=== PATIENT | female | born 1950 | race Asian ===

== ENCOUNTER → 2019-12-13 12:43 | Outpatient (CLI) | payer OTHER, MEDICARE, SELFPAY ==
--- NOTE | 2019-12-13 | DI.MRI.S_ITS ---
PROCEDURE: MR KNEE LT WO CON INDICATIONS: left knee pain TECHNIQUE: Noncontrast sagittal PD fast spin echo and T2 fast spin echo with fat saturation, sagittal 3-D FLASH with fat saturation; coronal T1 spin echo and PD fast spin echo with fat saturation, and axial PD fast spin echo with fat saturation through the knee. COMPARISON: None. FINDINGS: Image quality: Excellent. Menisci: The medial and lateral menisci demonstrate normal morphology and internal signal. The meniscal root ligaments appear intact. Cruciate ligaments: The anterior and posterior cruciate ligaments appear intact. Medial structures: The medial collateral ligament appears intact. The semimembranosus tendon insertions and meniscocapsular junction appear intact. Visualized portions of the pes anserinus tendons appear normal. No abnormal bursal fluid. Lateral structures: The lateral collateral ligament, long and short heads of the biceps femoris tendon appear intact. The popliteus tendon appears normal. Iliotibial band appears normal. Anterior structures: The quadriceps and patellar tendons appear intact. Patellar alignment is normal. No femoral trochlear dysplasia or ventral trochlear prominence. No edema in the infrapatellar fat pad. Bones and cartilage: No bone marrow contusions or fractures. There is mild cartilage fibrillation in the medial and lateral femorotibial compartment. Cartilage thickness is preserved. Joint space: There is small knee joint effusion. Tiny Duong's cyst. Normal appearing synovial plicae are incidentally noted. IMPRESSION: 1. Mild cartilage fibrillation in the medial femoral tibial compartment. 2. Small knee joint effusion is present. Dictated by: Gloria See M.D. on 12/15/2019 at 9:39 Approved by: Gloria See M.D. on 12/15/2019 at 11:40
== END ==
PROVIDERS: Family Provider Family Medicine; PCP Family Medicine; Referring Provider Family Medicine; Visit Provider Family Medicine
DX: M25.562 Pain in left knee (principal); M25.462 Effusion, left knee
CPT/HCPCS: 73721

== ENCOUNTER → 2020-08-18 13:40 | Outpatient (CLI) | payer OTHER, MEDICARE, SELFPAY ==
[2020-08-18] MEDS: COVID-19 VACC #1, MRNA(MOD) 100 MCG/0.5 ML VIAL IM (13:50)
== END ==
PROVIDERS: Family Provider Family Medicine; PCP Family Medicine; Visit Provider Internal Medicine
DX: Z23 Encounter for immunization (principal)
CPT/HCPCS: 0011A; 91301

== ENCOUNTER → 2020-09-15 13:53 | Outpatient (CLI) | payer OTHER, MEDICARE, SELFPAY ==
[2020-09-15] MEDS: COVID-19 VACC #2, MRNA(MOD) 100 MCG/0.5 ML VIAL IM (14:03)
== END ==
PROVIDERS: Family Provider Family Medicine; PCP Family Medicine; Visit Provider Internal Medicine
DX: Z23 Encounter for immunization (principal)
CPT/HCPCS: 0012A; 91301

== ENCOUNTER 2022-10-21 15:56 | Emergency (ER) | payer OTHER, MEDICARE, SELFPAY ==
[2022-10-21] VITALS (15 sets, daily range): BP systolic 160–209; BP diastolic 70–96; PULSE 63–81; RESP 15–21; TEMP 36.1; O2SAT 97–100; BMI 26.2
--- NOTE | 2022-10-21 16:18 | ED_ITS ---
HPI - Abdominal Pain General Chief Complaint: Abdominal Pain Stated Complaint: Having trouble walking/standing, abd pain Time Seen by Provider: 10/21/22 16:10 History of Present Illness HPI narrative: 72-year-old female nonsmoker with history hyperlipidemia and recent course of diarrhea treated with Flagyl presents with a chief complaint of right flank and right-sided abdominal pain since last night. She states that it seems to go into her groin and maybe her lateral thigh. She states the pain is worse when she moves and improves with rest. She denies fever but has had some chills. She states that it feels ?funny when she urinates. She denies any vaginal bleeding or discharge. She denies constipation or diarrhea. Related Data Home Medications Medication Instructions Recorded Confirmed albuterol sulfate 90 mcg/actuation 2 puff INH ##0 05/27/17 aerosol inhaler (Ventolin HFA) atorvastatin 40 mg tablet (Lipitor) 40 mg PO QDAY ##0 05/27/17 benzonatate 100 mg capsule 100 mg PO TIDP PRN ##0 05/27/17 loratadine 10 mg capsule (Claritin 10 mg PO QDAY ##0 05/27/17 Liqui-Gel) Previous Rx's Medication Instructions Recorded amoxicillin 875 mg-potassium 875 mg PO BID 14 days #0 tabs 05/27/17 clavulanate 125 mg tablet (Augmentin) hydrocodone 5 mg-acetaminophen 325 0 tab PO Q6HP PRN #15 tabs 05/27/17 mg tablet ondansetron 4 mg disintegrating 4 mg sublingual Q6HP PRN ##20 05/27/17 tablet (Zofran ODT) gabapentin 300 mg capsule 300 mg PO BEDTIME #14 caps 10/21/22 hydrocodone 5 mg-acetaminophen 325 1 tab PO Q4-6H PRN pain #10 tabs 10/21/22 mg tablet ketorolac 10 mg tablet 10 mg PO Q6H PRN pain #14 tabs 10/21/22 methylprednisolone 4 mg tablets in See Rx Instructions PO .COMPLEX 10/21/22 a dose pack (Medrol (Abhijit)) #21 ea ondansetron 4 mg disintegrating 4 mg PO TID-QID PRN nausea and 10/21/22 tablet vomiting #10 tabs Allergies Allergy/AdvReac Type Severity Reaction Status Date / Time aspirin [ASPIRIN] Allergy Unknown Unverified 08/22/17 13:03 Review of Systems Review of Systems Narrative: GENERAL: Denies chills, fatigue, malaise, fever, sweats. HEENT: Denies sinus pain, ear pain, sore throat, difficulty swallowing, dizziness. RESPIRATORY: Denies dyspnea, cough, wheezing, hemoptysis, sputum. CARDIOVASCULAR: Denies chest pain, palpitations, orthopnea, edema, GASTROINTESTINAL: See HPI : See HPI MUSCULOSKELETAL: denies weakness, joint pain, or bony pain SKIN: Denies rash, skin lesions, or other NEUROLOGIC: Denies weakness, headache, numbness, change in speech, confusion, seizures, incoordination. PSYCHIATRIC: No concerning psychosocial issues. 12 point review of systems is negative except for those stated above Exam Narrative Exam Narrative: GENERAL: [72] year old patient appears stated age. Well-developed patient, in mild distress. HEAD: Atraumatic. Normocephalic. EYES: Pupils equal round and reactive. Extraocular motions intact. No scleral icterus. No injection or drainage. ENT: Nose without bleeding, purulent drainage. Throat without erythema, tonsillar hypertrophy or exudate. Airway patent. NECK: Trachea midline. Non tender CARDIOVASCULAR: Regular rate and rhythm without murmurs, gallops, or rubs. RESPIRATORY: Clear to auscultation. Breath sounds equal bilaterally. No wheezes, rales, or rhonchi. GASTROINTESTINAL: Abdomen soft, right side abdominal pain, normal bowel sounds, no rebound or guarding, nondistended. EXTREMITIES: No edema or joint tenderness. BACK: conditioner tender but free of any obvious external abnormalities. Patient exam notes decreased range of motion and muscle spasm, but no CVA tenderness, or vertebral point tenderness. There are no symptoms of cauda equina such as saddle anesthesia, and decreased reflexes, decreased sensation or strength. NEURO: AOx3. SKIN: No rash or erythema of visible areas Initial Vital Signs Initial Vital Signs: Vital Signs Temperature 96.9 F L 10/21/22 15:58 Pulse Rate 78 10/21/22 15:58 Respiratory Rate 16 10/21/22 15:58 Blood Pressure 186/85 H 10/21/22 15:58 Pulse Oximetry 99 10/21/22 15:58 Oxygen Delivery Method Room Air 10/21/22 15:58 Course Orders Ordered: Discontinued Medications Hydrocodone Bitart/Acetaminophen (Hydrocodone/Acet 5/325 Prepack) 1 bottle MISC SEEINSTR ONE Stop: 10/21/22 18:46 Last Admin: 10/21/22 18:59 Dose: 1 bottle Documented By: HIMA Ondansetron HCl (Ondansetron 4 Mg/2 Ml Inj) 4 mg IV NOW PRN PRN Reason: Nausea And Vomiting Ondansetron HCl (Ondansetron 4 Mg Odt Prepack) 1 bottle MISC SEEINSTR ONE Stop: 10/21/22 18:46 Last Admin: 10/21/22 18:59 Dose: 1 bottle Documented By: HIMA Vital Signs Vital signs: Vital Signs - 8 hr 10/21/22 18:30 10/21/22 18:30 Pulse Rate 66 Respiratory Rate 18 Blood Pressure 169/72 H Pulse Oximetry 99 MDM - Abdominal Pain Lab Data 10/21/22 16:25 10/21/22 16:25 Labs: Lab Results 10/21/22 10/21/22 10/21/22 Range/Units 16:14 16:25 16:25 WBC 8.4 (4.5-11.0) X10^3/uL RBC 4.94 (4.0-5.2) X10^6/uL Hgb 14.3 (12.0-16.0) g/dL Hct 42.5 (36-46) % MCV 85.9 (80-100) fL MCH 29.0 (26-34) PG MCHC 33.7 (30-36) % RDW 13.4 (11.6-14.8) % Plt Count 167 (150-400) X10^3/uL Neut % (Auto) 63.8 (50-75) % Lymph % (Auto) 24.3 L (25-40) % [place] % (Auto) 10.0 (3-14) % Eos % (Auto) 1.1 L (2-4) % Baso % (Auto) 0.8 (0-2) % Neut # (Auto) 5400 (7825-1637) /uL Lymph # (Auto) 2100 (8948-3054) /uL [place] # (Auto) 800 (0-900) /uL Eos # (Auto) 100 (0-450) /uL Baso # (Auto) 100 (0-100) /uL PT 11.5 (10.1-12.7) SECONDS INR 1.0 (0.9-1.3) Sodium (137-145) mmol/L Potassium (3.4-5.1) mmol/L Chloride (98-107) mmol/L Carbon Dioxide (22-32) mmol/L BUN (7-17) mg/dL Creatinine (0.52-1.04) mg/dL Estimated GFR (>60) mL/min BUN/Creatinine Ratio (6-22) Glucose (80-110) mg/dL Calcium (8.4-10.2) mg/dL Total Bilirubin (0.2-1.3) mg/dL AST (14-36) IU/L ALT (<35) IU/L Alkaline Phosphatase (38-126) U/L Total Protein (6.3-8.2) g/dL Albumin (3.5-5.0) g/dL Globulin (1.7-4.1) g/dL Albumin/Globulin Ratio (1.0-2.8) Lipase (23-300) U/L Urine RBC 5-10/hpf H (0-5/HPF) Urine WBC 1-5/hpf (0-5/HPF) Ur Squamous Epith Cells 1-5 /hpf (0-5/HPF) Urine Bacteria Occasional (0-1) (None) Ur Culture Indicated? Cult not indicated 10/21/22 Range/Units 16:25 WBC (4.5-11.0) X10^3/uL RBC (4.0-5.2) X10^6/uL Hgb (12.0-16.0) g/dL Hct (36-46) % MCV (80-100) fL MCH (26-34) PG MCHC (30-36) % RDW (11.6-14.8) % Plt Count (150-400) X10^3/uL Neut % (Auto) (50-75) % Lymph % (Auto) (25-40) % [place] % (Auto) (3-14) % Eos % (Auto) (2-4) % Baso % (Auto) (0-2) % Neut # (Auto) (4152-8013) /uL Lymph # (Auto) (4057-2305) /uL [place] # (Auto) (0-900) /uL Eos # (Auto) (0-450) /uL Baso # (Auto) (0-100) /uL PT (10.1-12.7) SECONDS INR (0.9-1.3) Sodium 140 (137-145) mmol/L Potassium 3.4 (3.4-5.1) mmol/L Chloride 104 (98-107) mmol/L Carbon Dioxide 28 (22-32) mmol/L BUN 15 (7-17) mg/dL Creatinine 0.56 (0.52-1.04) mg/dL Estimated GFR > 60 (>60) mL/min BUN/Creatinine Ratio 26.8 H (6-22) Glucose 97 (80-110) mg/dL Calcium 9.3 (8.4-10.2) mg/dL Total Bilirubin 0.7 (0.2-1.3) mg/dL AST 28 (14-36) IU/L ALT 36 H (<35) IU/L Alkaline Phosphatase 81 (38-126) U/L Total Protein 8.5 H (6.3-8.2) g/dL Albumin 4.6 (3.5-5.0) g/dL Globulin 3.9 (1.7-4.1) g/dL Albumin/Globulin Ratio 1.2 (1.0-2.8) Lipase 261 (23-300) U/L Urine RBC (0-5/HPF) Urine WBC (0-5/HPF) Ur Squamous Epith Cells (0-5/HPF) Urine Bacteria (None) Ur Culture Indicated? Point of care testing: Urine Dip Bedside Urine Glucose Negative Bedside Urine Bilirubin - Negative Bedside Urine Ketone - Negative Urine Specific [place] 1.010 Bedside Urine Occult Blood + Bedside Urine pH 6.0 Bedside Urine Protein - Negative Bedside Urine Urobilinogen - Negative Bedside Urine Nitrite - Negative Bedside Urine Leukocytes - Negative Esterase MDM Narrative Medical decision making narrative: CC: 72-year-old female with right-sided flank pain and some right lateral leg pain Complicating co-morbidities: age Data collected from: Patient Medical records reviewed: Prior notes reviewed in our EMR Differential considered, but not limited to: kidney stone versus bowel infection versus bowel obstruction versus pyelonephritis versus lumbar radiculo kasia Exam documented above, pertinent findings include: no saddle anesthesia, no lower extremity weakness, bilateral patellar reflexes intact, abdomen is soft but tender Lab Test results independently reviewed as above. Pertinent findings: Independently reviewed EKG as above Imaging studies independently reviewed: CT abdomen and pelvis, no acute findings Re-evaluations: patient's pain is well controlled, she is tolerating ambulation and orals Discussion: 72-year-old female with flank pain and lateral leg pain has reassuring history and physical exam. Multiple diagnoses considered as noted above, no evidence of a urinary tract infection, kidney stone or bowel obstruction, labs and imaging are reassuring. Patient does have some mild radicular symptoms but no red flag findings suggestive of a neurosurgical emergency such as cauda equina, subdural hematoma or epidural abscess. Patient given return precautions and questions answered to her apparent satisfaction Disposition: see below, along with detailed discharge instructions that have been reviewed with patient as well as indications for ED re-evaluation and additional outpatient follow up Discharge Plan Departure Patient Disposition: Home Clinical Impression: Acute right flank pain Instructions: DI for Flank Pain Activity Restrictions/Additional Instructions: *You have been diagnosed with [abdominal pain] * As we discussed your history and physical exam as well as labs and imaging are very reassuring. There is no evidence of any severe diagnoses that would require a specific or immediate intervention. *What to do: *Please continue to take your regular medications as directed. [x ] New medication prescriptions sent to your pharmacy: [[facility] ] *Please follow up with your primary care provider in 2-3 days, call for an appointment. Let them know you were seen in the Emergency Department and that we ask that you be seen in follow up. We will electronically transmit a record of today's note if your PCP is in our system *Please consider a clear liquid diet for the next 24-48 hours and then slowly advance to regular as tolerated. Also, try to avoid alcohol, nicotine, caffeine, spicy, acidic or fatty foods as this may worsen your symptoms *If you do not have a primary care provider please contact the [facility] Resource line at [phone]. They will ask some questions about your medical history and help get you set up with a doctor in the community. *Return to Emergency Department if you should have any new, worsening or concerning symptoms, such as [fever greater than 101 F, shaking chills, worsening pain, persistent vomiting or other bothersome symptoms] Prescriptions: New hydrocodone-acetaminophen 5-325 mg tablet 1 tab PO Q4-6H PRN (Reason: pain) Qty: 10 0RF ketorolac 10 mg tablet 10 mg PO Q6H PRN (Reason: pain) Qty: 14 0RF gabapentin 300 mg capsule 300 mg PO BEDTIME Qty: 14 0RF methylprednisolone [Medrol (Abhijit)] 4 mg tablets,dose pack See Rx Instructions .ROUTE .COMPLEX Qty: 21 0RF Rx Instructions: orally per package directions ondansetron 4 mg tablet,disintegrating 4 mg PO TID-QID PRN (Reason: nausea and vomiting) Qty: 10 0RF No Action benzonatate 100 MG capsule 100 mg PO TIDP PRNQty: 0 albuterol sulfate [Ventolin HFA] 90 MCG/PUFF HFA aerosol inhaler 2 puff INH Qty: 0 atorvastatin [Lipitor] 40 MG tablet 40 mg PO QDAY Qty: 0 loratadine [Claritin Liqui-Gel] 10 MG capsule 10 mg PO QDAY Qty: 0 hydrocodone-acetaminophen 5 MG/325 MG tablet 0 tab PO Q6HP PRNQty: 15 0RF ondansetron [Zofran ODT] 4 MG tablet,disintegrating 4 mg Sublingual Q6HP PRNQty: 20 0RF amoxicillin-pot clavulanate [Augmentin] 875 MG/125 MG tablet 875 mg PO BID 14 Days Qty: 0 0RF Referrals: Aishwarya Shepherd PA-C [Primary Care Provider] - Stand Alone Forms: Patient Portal/API, Work Release Note
[2022-10-21 16:33] LABS: Add Manual Diff / Slide Review NO; Basophils Absolute Auto 100 /uL (0-100); Basophils Percent Auto 0.8 % (0-2); Eosinophils Absolute Auto 100 /uL (0-450); Eosinophils Percent Auto 1.1 % (2-4); Hematocrit 42.5 % (36-46); Hemoglobin 14.3 g/dL (12.0-16.0); Lymphocytes Absolute Auto 2100 /uL (1100-4500); Lymphocytes Percent Auto 24.3 % (25-40); Mean Corpuscular HGB Conc 33.7 % (30-36); Mean Corpuscular Volume 85.9 fL (80-100); Monocytes Absolute Auto 800 /uL (0-900); Neutrophils Absolute Auto 5400 /uL (1500-7000); Neutrophils Percent Auto 63.8 % (50-75); Platelet Count 167 X10^3/uL (150-400); Red Blood Cell Count 4.94 X10^6/uL (4.0-5.2); Red Cell Distribution Width 13.4 % (11.6-14.8); White Blood Cell Count 8.4 X10^3/uL (4.5-11.0)
[2022-10-21 16:40] LABS: Prothrombin Time 11.5 SECONDS (10.1-12.7)
[2022-10-21 16:44] LABS: Alanine Aminotransferase 36 IU/L (<35); Albumin 4.6 g/dL (3.5-5.0); Albumin Globulin Ratio 1.2 (1.0-2.8); Alkaline Phosphatase 81 U/L (38-126); Aspartate Aminotransferase 28 IU/L (14-36); BUN Creatinine Ratio 26.8 (6-22); Bilirubin Total 0.7 mg/dL (0.2-1.3); Blood Urea Nitrogen 15 mg/dL (7-17); Calcium 9.3 mg/dL (8.4-10.2); Carbon Dioxide 28 mmol/L (22-32); Chloride 104 mmol/L (98-107); Estimated Glomerular Filt Rate > 60 mL/min (>60); Globulin 3.9 g/dL (1.7-4.1); Glucose 97 mg/dL (80-110); HEMOLYSIS < 15 (0-50); Lipase 261 U/L (23-300); Potassium 3.4 mmol/L (3.4-5.1); Sodium 140 mmol/L (137-145); Total Protein 8.5 g/dL (6.3-8.2)
[2022-10-21 16:50] LABS: Bacteria Urine Occasional (0-1); RBC Urine 5-10/HPF (0-5/HPF); Squamous Epithelial Cell Urine 1-5 /HPF (0-5/HPF); WBC Urine 1-5/HPF (0-5/HPF)
[2022-10-21 16:51] LABS: Culture Indicated Urine Cult Not Indicated
--- NOTE | 2022-10-21 16:52 | DI.CT.S_ITS ---
PROCEDURE: CT ABDOMEN PELVIS W CON INDICATIONS: Right flank pain x 3 days TECHNIQUE: After the administration of intravenous contrast, axial sections acquired from the lung bases to the pubic symphysis. Coronal and sagittal reformats were performed. For radiation dose reduction, the following was used: automated exposure control, adjustment of mA and/or kV according to patient size. COMPARISON: None. FINDINGS: Lower thorax: The lung bases are clear. Heart size normal. No hiatal hernia. Liver: Normal in size and attenuation. No contour deformity present. Biliary system: Cholecystectomy. No intra or extrahepatic bile duct dilation. Pancreas: Unremarkable without mass or inflammation evident. Spleen: Normal in size and density. Adrenals: Normal morphology and density. Reproductive system: Unremarkable as visualized. Urinary system: Normal renal size and attenuation. No renal calculi, hydronephrosis, or solid mass present. Urinary bladder unremarkable. Gastrointestinal system: The bowel is unremarkable without evidence of bowel obstruction or inflammation. The stomach appears unremarkable. Appendix: No findings to suggest acute appendicitis. Peritoneal spaces: No mesenteric or retroperitoneal adenopathy. No free air. No free fluid. Vasculature: The IVC, aorta and iliac vasculature are unremarkable. Abdominal wall: Abdominal wall intact without evidence of ventral or inguinal hernias. Musculoskeletal: Normal bone mineralization. Degenerative disc disease and arthropathy noted in lower lumbar spine. No acute fractures. IMPRESSION: 1. No acute CT findings in the abdomen and pelvis. Approved by: Aidan Chavez M.D. on 10/21/2022 at 17:20
[2022-10-21] MEDS: ONDANSETRON 4 MG ODT PREPACK 1 BOTTLE MISC (18:59)
[2022-10-21] MEDS: HYDROCODONE/ACET 5/325 PREPACK 1 BOTTLE MISC (18:59)
== END 2022-10-21 19:15 | disposition home or self-care (01) ==
PROVIDERS: Emergency Provider Emergency Medicine; Family Provider Family Medicine; PCP Physician Assistant Medical
DX: R10.9 Unspecified abdominal pain (principal); M79.604 Pain in right leg
CPT/HCPCS: 36415; 74177; 80053; 81003; 81015; 83690; 85025; 85610; 93005; 93010; 99284; Q9967

== ENCOUNTER 2023-12-03 03:53 | Emergency (ER) | payer MEDICARE, OTHER, SELFPAY ==
[2023-12-03] VITALS (20 sets, daily range): BP systolic 99–188; BP diastolic 49–84; PULSE 58–92; RESP 15–30; TEMP 36.9; O2SAT 93–99; BMI 27.2
--- NOTE | 2023-12-03 04:04 | ED.GENADULT ---
HPI - General Adult <Jona Lyons MD - Last Filed: 12/03/23 16:29> General Chief complaint: Headache Stated complaint: vomiting, headache, chest pain, 180/90 bp Time Seen by Provider: 12/03/23 03:59 History of Present Illness HPI narrative: 73-year-old female recently seen outside facility 11/28/23 ED [facility] complains for elevated blood pressure, no imaging recalled per patient/daughter, discharged home without specific treatment, and to follow up with PCP for blood pressure issues, now having posterior headache since yesterday, after spending 8 hours at local [employer] through the day yesterday, no fall or injury. No visual complaints. She has no focal weakness or numbness to face arm or leg. She denies use of blood thinners. Recent evaluation alternate facility noted. She has had some resolved chest discomfort, recent mild dry cough. Denies shortness of breath. Related Data Home Medications Medication Instructions Recorded Confirmed albuterol sulfate 90 mcg/actuation 2 puff INH ##0 05/27/17 aerosol inhaler (Ventolin HFA) atorvastatin 40 mg tablet (Lipitor) 40 mg PO QDAY ##0 05/27/17 benzonatate 100 mg capsule 100 mg PO TIDP PRN ##0 05/27/17 loratadine 10 mg capsule (Claritin 10 mg PO QDAY ##0 05/27/17 Liqui-Gel) Previous Rx's Medication Instructions Recorded amoxicillin 875 mg-potassium 875 mg PO BID 14 days #0 tabs 05/27/17 clavulanate 125 mg tablet (Augmentin) hydrocodone 5 mg-acetaminophen 325 0 tab PO Q6HP PRN #15 tabs 05/27/17 mg tablet ondansetron 4 mg disintegrating 4 mg sublingual Q6HP PRN ##20 05/27/17 tablet (Zofran ODT) gabapentin 300 mg capsule 300 mg PO BEDTIME #14 caps 10/21/22 hydrocodone 5 mg-acetaminophen 325 1 tab PO Q4-6H PRN pain #10 tabs 10/21/22 mg tablet ketorolac 10 mg tablet 10 mg PO Q6H PRN pain #14 tabs 10/21/22 methylprednisolone 4 mg tablets in See Rx Instructions PO .COMPLEX 10/21/22 a dose pack (Medrol (Abhijit)) #21 ea ondansetron 4 mg disintegrating 4 mg PO TID-QID PRN nausea and 10/21/22 tablet vomiting #10 tabs ketorolac 10 mg tablet 10 mg PO Q6H PRN pain #14 tabs 10/22/22 methylprednisolone 4 mg tablets in See Rx Instructions PO .COMPLEX 10/22/22 a dose pack (Medrol (Abhijit)) #21 ea ondansetron 4 mg disintegrating 4 mg PO TID-QID PRN nausea and 10/22/22 tablet vomiting #10 tabs Allergies Allergy/AdvReac Type Severity Reaction Status Date / Time aspirin [ASPIRIN] Allergy Intermediate Verified 12/03/23 05:26 Review of Systems <Jona Lyons MD - Last Filed: 12/03/23 16:29> Review of Systems Narrative: see HPI Exam <Jona Lyons MD - Last Filed: 12/03/23 16:29> Narrative Exam Narrative: GENERAL: Well-developed patient, in mild distress. HEAD: Atraumatic. Normocephalic. EYES: Pupils equal round and reactive. Extraocular motions intact. No scleral icterus. No injection or drainage. ENT: Nose without bleeding, purulent drainage. Throat without erythema, tonsillar hypertrophy or exudate. Airway patent. NECK: Trachea midline. Non tender CARDIOVASCULAR: Regular rate and rhythm without murmurs, gallops, or rubs. RESPIRATORY: Clear to auscultation. Breath sounds equal bilaterally. No wheezes, rales, or rhonchi. GASTROINTESTINAL: Abdomen soft, non-tender, nondistended. EXTREMITIES: No edema or joint tenderness. BACK: Nontender without deformity or crepitance. No flank tenderness. NEURO: AOx3. Grossly nonfocal neuro exam SKIN: No rash or erythema of visible areas Initial Vital Signs Initial Vital Signs: Vital Signs Pulse Rate 80 12/03/23 04:06 Respiratory Rate 22 12/03/23 04:06 Blood Pressure 188/84 H 12/03/23 04:06 Pulse Oximetry 97 12/03/23 04:06 <Khalida Ridley DO - Last Filed: 12/03/23 18:46> Initial Vital Signs Initial Vital Signs: Vital Signs Pulse Rate 80 12/03/23 04:06 Respiratory Rate 22 12/03/23 04:06 Blood Pressure 188/84 H 12/03/23 04:06 Pulse Oximetry 97 12/03/23 04:06 Course <Jona Lyons MD - Last Filed: 12/03/23 16:29> Orders Ordered: Discontinued Medications Diphenhydramine HCl (Diphenhydramine 50 Mg/Ml Vial) 50 mg IV NOW ONE Stop: 12/03/23 04:09 Last Admin: 12/03/23 04:27 Dose: 50 mg Documented By: AB Sodium Chloride (Normal Saline 0.9%) 1,000 mls @ 150 mls/hr IV CONT DORI Last Infusion: 12/03/23 05:50 Dose: Infused Documented By: Infusion: 12/03/23 05:50 Dose: 0 mls/hr Documented By: Admin: 12/03/23 04:28 Dose: 150 mls/hr Documented By: AB Nicardipine HCl 25 mg/ Sodium (Chloride) 250 mls @ 50 mls/hr IV TITRATE DORI; Protocol Last Titration: 12/03/23 06:44 Dose: 0 mg/hr, 0 mls/hr Documented By: Admin: 12/03/23 05:40 Dose: 5 mg/hr, 50 mls/hr Documented By: AB Prochlorperazine (Prochlorperazine 10 Mg/2 Ml Vial) 5 mg IV NOW ONE Stop: 12/03/23 04:08 Last Admin: 12/03/23 04:27 Dose: 5 mg Documented By: AB Vital Signs Vital signs: Vital Signs - 8 hr 12/03/23 08:33 12/03/23 08:33 12/03/23 09:00 Pulse Rate 72 Respiratory Rate 16 Blood Pressure 155/67 H 121/57 L Pulse Oximetry 97 12/03/23 09:00 12/03/23 09:30 12/03/23 09:30 Pulse Rate 59 L 59 L Respiratory Rate 15 16 Blood Pressure 121/59 L Pulse Oximetry 97 96 12/03/23 09:34 12/03/23 09:34 12/03/23 10:00 Pulse Rate 67 58 L Respiratory Rate 16 16 Blood Pressure 128/59 L Pulse Oximetry 97 98 12/03/23 10:00 12/03/23 10:30 12/03/23 10:30 Pulse Rate 63 Respiratory Rate 20 Blood Pressure 112/57 L 118/58 L Pulse Oximetry 97 <Khalida Ridley DO - Last Filed: 12/03/23 18:46> Orders Ordered: Discontinued Medications Diphenhydramine HCl (Diphenhydramine 50 Mg/Ml Vial) 50 mg IV NOW ONE Stop: 12/03/23 04:09 Last Admin: 12/03/23 04:27 Dose: 50 mg Documented By: AB Sodium Chloride (Normal Saline 0.9%) 1,000 mls @ 150 mls/hr IV CONT DORI Last Infusion: 12/03/23 05:50 Dose: Infused Documented By: Infusion: 12/03/23 05:50 Dose: 0 mls/hr Documented By: Admin: 12/03/23 04:28 Dose: 150 mls/hr Documented By: AB Nicardipine HCl 25 mg/ Sodium (Chloride) 250 mls @ 50 mls/hr IV TITRATE DORI; Protocol Last Titration: 12/03/23 06:44 Dose: 0 mg/hr, 0 mls/hr Documented By: Admin: 12/03/23 05:40 Dose: 5 mg/hr, 50 mls/hr Documented By: AB Prochlorperazine (Prochlorperazine 10 Mg/2 Ml Vial) 5 mg IV NOW ONE Stop: 12/03/23 04:08 Last Admin: 12/03/23 04:27 Dose: 5 mg Documented By: AB Vital Signs Vital signs: Vital Signs - 8 hr 12/03/23 08:33 12/03/23 08:33 12/03/23 09:00 Pulse Rate 72 Respiratory Rate 16 Blood Pressure 155/67 H 121/57 L Pulse Oximetry 97 12/03/23 09:00 12/03/23 09:30 12/03/23 09:30 Pulse Rate 59 L 59 L Respiratory Rate 15 16 Blood Pressure 121/59 L Pulse Oximetry 97 96 12/03/23 09:34 12/03/23 09:34 12/03/23 10:00 Pulse Rate 67 58 L Respiratory Rate 16 16 Blood Pressure 128/59 L Pulse Oximetry 97 98 12/03/23 10:00 12/03/23 10:30 12/03/23 10:30 Pulse Rate 63 Respiratory Rate 20 Blood Pressure 112/57 L 118/58 L Pulse Oximetry 97 Medical Decision Making <Jona Lyons MD - Last Filed: 07/22/24 16:29> Medical Records Medical records reviewed: Yes I reviewed the patient's medical records. Lab Data Lab results reviewed: Yes I reviewed the patient's lab results. 12/03/23 04:10 12/03/23 04:10 Labs: Lab Results 12/03/23 12/03/23 Range/Units 04:10 04:30 WBC 12.6 H (4.5-11.0) X10^3/uL RBC 5.06 (4.0-5.2) X10^6/uL Hgb 14.9 (12.0-16.0) g/dL Hct 43.4 (36-46) % MCV 85.8 (80-100) fL MCH 29.5 (26-34) PG MCHC 34.4 (30-36) % RDW 13.1 (11.6-14.8) % Plt Count 171 (150-400) X10^3/uL Neut % (Auto) 87.5 H (50-75) % Lymph % (Auto) 8.4 L (25-40) % [place] % (Auto) 2.9 L (3-14) % Eos % (Auto) 0.1 L (2-4) % Baso % (Auto) 1.1 (0-2) % Neut # (Auto) 46423 H (4590-7851) /uL Lymph # (Auto) 1100 (7531-6598) /uL [place] # (Auto) 400 (0-900) /uL Eos # (Auto) 0 (0-450) /uL Baso # (Auto) 100 (0-100) /uL Sodium 137 (137-145) mmol/L Potassium 3.5 (3.4-5.1) mmol/L Chloride 103 (98-107) mmol/L Carbon Dioxide 25 (22-32) mmol/L BUN 13 (7-17) mg/dL Creatinine 0.68 (0.52-1.04) mg/dL Estimated GFR > 60 (>60) mL/min BUN/Creatinine Ratio 19.1 (6-22) Glucose 167 H (80-110) mg/dL Calcium 10.0 (8.4-10.2) mg/dL Total Bilirubin 1.1 (0.2-1.3) mg/dL AST 30 (14-36) IU/L ALT 27 (<35) IU/L Alkaline Phosphatase 100 (38-126) U/L Total Creatine Kinase 68 (30-135) U/L Troponin I < 0.012 (0.01-0.034) ng/mL Total Protein 8.8 H (6.3-8.2) g/dL Albumin 4.7 (3.5-5.0) g/dL Globulin 4.1 (1.7-4.1) g/dL Albumin/Globulin Ratio 1.1 (1.0-2.8) Lipase 140 (23-300) U/L Chlamy pneumoniae PCR Not detected (Not Detect) Adenovirus (PCR) Not detected (Not Detect) B.parapertussis DNA PCR Not detected (Not Detecte) Coronavirus OC43 (PCR) Not detected (Not Detect) Coronavirus HKU1 (PCR) Not detected (Not Detect) Coronavirus 229E (PCR) Not detected (Not Detect) SARS-CoV-2 (PCR) Not detected (Not Detecte) Coronavirus NL63 (PCR) Not detected (Not Detect) Human Metapneumovir PCR Not detected (Not Detect) Influenza Type A (PCR) Not detected (Not Detect) Influenza Type B (PCR) Not detected (Not Detect) M. pneumoniae (PCR) Not detected (Not Detect) Parainfluenza 1 (PCR) Not detected (Not Detect) Parainfluenza 2 (PCR) Not detected (Not Detect) Parainfluenza 3 (PCR) Not detected (Not Detect) Parainfluenza 4 (PCR) Not detected (Not Detect) RSV (PCR) Not detected (Not Detect) Entero/Rhino (PCR) Not detected (Not Detect) ECG Data Attestation: I personally reviewed and interpreted this ECG as follows: Interpretation: Normal sinus rhythm with rate of 77, no obvious ST segment elevation or depression changes. MA 162, QRS 88, QTC 411. MDM Narrative Medical decision making narrative: 73-year-old female with headache and nausea, many hours yesterday at [facility], consider muscle tension type headache. No weakness to face arm or leg. No numbness or tingling face arm or leg. IV Compazine/Benadryl. CT head noncontrast study ordered. EKG and labs pending. Chest x-ray single view. Impression: ?No active cardiopulmonary pathology. ? Teleradiology CT head without IV contrast. Impressions: ?Small left parafalcine hyperattenuation 2 mm thickness suggestive of tiny subdural hematoma. Comparison with prior studies, follow up, or MRI suggested.? Teleradiology report, after phone call discussion about acute findings with teleradiology liaison 0530, Case discussed with ED physician [facility] Dr. Vazquez, can likely accept ED to ED, however he would like neurosurgery consulted, await call back 0545, records review, faxed copy of [facility] visit on 11/28/2023. Discharge diagnosis elevated blood pressure. Text information mentions patient had elevated blood pressure at [place], was therefore evaluated in ED. No mention in notes of any headache or nausea or vomiting at that time. No imaging studies mentioned. Discharged home with instructions to follow up blood pressure with PCP. 0550, case discussed with [facility] neurosurgery Dr. Tello, who reviewed scan, believes that there is a very small bleed versus artifact from falcine fold only. She recommends repeat noncontrast CT scanning at 4h, then do CT angiogram head. She advises patient be maintained at her usual normal blood pressure, which apparently is not elevated, we will keep IV nicardipine onboard for now. Nausea better after IV Compazine/Benadryl, headache symptoms improving. We will repeat noncontrast head CT scan at 0815. 0700, repeat CT Head noncontrast ordered for 0815, CTA Head to follow. Signed out to Dr Khai Ridley patient seen evaluated by myself. She has been sleeping blood pressure is in the 120 she has been off the nicardipine drip. She still has a slight headache no nausea or vomiting. Marker Machine strength is equal bilaterally able to move toes. CT head neck angio remained stable without significant bleed or worsening subdural. The subdural is again reported as very small, tiny I have contacted [facility] they read conversation with neurosurgeon and ED physician last night reports that if there is no change patient can be discharged home. At this time patient blood pressure is controlled there is a tiny subdural that remained stable and unchanged can go home. Patient has an appointment with PCP in 3 days. Patient will be going home with her daughter who will monitor her. Discussion of strict return precautions and when to return to the ED <Khalida Botnick, DO - Last Filed: 12/03/23 18:46> Lab Data Labs: Lab Results 12/03/23 12/03/23 Range/Units 04:10 04:30 WBC 12.6 H (4.5-11.0) X10^3/uL RBC 5.06 (4.0-5.2) X10^6/uL Hgb 14.9 (12.0-16.0) g/dL Hct 43.4 (36-46) % MCV 85.8 (80-100) fL MCH 29.5 (26-34) PG MCHC 34.4 (30-36) % RDW 13.1 (11.6-14.8) % Plt Count 171 (150-400) X10^3/uL Neut % (Auto) 87.5 H (50-75) % Lymph % (Auto) 8.4 L (25-40) % [place] % (Auto) 2.9 L (3-14) % Eos % (Auto) 0.1 L (2-4) % Baso % (Auto) 1.1 (0-2) % Neut # (Auto) 00065 H (9885-1680) /uL Lymph # (Auto) 1100 (8649-6813) /uL [place] # (Auto) 400 (0-900) /uL Eos # (Auto) 0 (0-450) /uL Baso # (Auto) 100 (0-100) /uL Sodium 137 (137-145) mmol/L Potassium 3.5 (3.4-5.1) mmol/L Chloride 103 (98-107) mmol/L Carbon Dioxide 25 (22-32) mmol/L BUN 13 (7-17) mg/dL Creatinine 0.68 (0.52-1.04) mg/dL Estimated GFR > 60 (>60) mL/min BUN/Creatinine Ratio 19.1 (6-22) Glucose 167 H (80-110) mg/dL Calcium 10.0 (8.4-10.2) mg/dL Total Bilirubin 1.1 (0.2-1.3) mg/dL AST 30 (14-36) IU/L ALT 27 (<35) IU/L Alkaline Phosphatase 100 (38-126) U/L Total Creatine Kinase 68 (30-135) U/L Troponin I < 0.012 (0.01-0.034) ng/mL Total Protein 8.8 H (6.3-8.2) g/dL Albumin 4.7 (3.5-5.0) g/dL Globulin 4.1 (1.7-4.1) g/dL Albumin/Globulin Ratio 1.1 (1.0-2.8) Lipase 140 (23-300) U/L Chlamy pneumoniae PCR Not detected (Not Detect) Adenovirus (PCR) Not detected (Not Detect) B.parapertussis DNA PCR Not detected (Not Detecte) Coronavirus OC43 (PCR) Not detected (Not Detect) Coronavirus HKU1 (PCR) Not detected (Not Detect) Coronavirus 229E (PCR) Not detected (Not Detect) SARS-CoV-2 (PCR) Not detected (Not Detecte) Coronavirus NL63 (PCR) Not detected (Not Detect) Human Metapneumovir PCR Not detected (Not Detect) Influenza Type A (PCR) Not detected (Not Detect) Influenza Type B (PCR) Not detected (Not Detect) M. pneumoniae (PCR) Not detected (Not Detect) Parainfluenza 1 (PCR) Not detected (Not Detect) Parainfluenza 2 (PCR) Not detected (Not Detect) Parainfluenza 3 (PCR) Not detected (Not Detect) Parainfluenza 4 (PCR) Not detected (Not Detect) RSV (PCR) Not detected (Not Detect) Entero/Rhino (PCR) Not detected (Not Detect) Imaging Data CT scan - head: Radiologist's Impression: PROCEDURE: CT HEAD/BRAIN WO CON INDICATIONS: headache TECHNIQUE: Noncontrast 4.5 mm thick angled axial sections acquired from the foramen magnum to the vertex, with coronal and sagittal reformats. For radiation dose reduction, the following was used: automated exposure control, adjustment of mA and/or kV according to patient size. COMPARISON: None. FINDINGS: Image quality: Diagnostic. CSF spaces: Basal cisterns are patent. Probable tiny focal left para falcine subdural hematoma, focally 2 mm thick, on axial images 20 and 21 of series 2. The ventricles are symmetric in size and shape. Brain: As stated above, probable tiny focal left para falcine subdural hematoma. No masses. There is cerebral volume loss for age, with resultant ventricular and sulcal prominence. There are periventricular and deep white matter chronic small vessel ischemic changes. There is intracranial internal carotid artery atherosclerosis. Skull and face: Calvarium and visualized facial bones appear intact, without suspicious lesions. Sinuses: Visualized sinuses and mastoids are clear. IMPRESSION: Tiny focal left para falcine subdural hematoma. No other significant findings. Recommend short interval follow-up CT head. Comment: Final report is concordant with preliminary interpretation provided by [facility]. Dictated by: Ford Marx M.D. on 12/03/2023 at 7:32 CTA - brain/neck: Radiologist's Impression: PROCEDURE: CT ANGIO HEAD INDICATIONS: Headache, parafalcine SDH vs other, interval rpt study TECHNIQUE: Precontrast 4.5 mm thick angled axial sections acquired from the foramen magnum to the vertex. After the administration of intravenous contrast, 1 mm thick sections acquired through the [place] of [place]. Postcontrast 4.5 mm thick sections then re-acquired from the foramen magnum to the vertex. 10 mm thick [id number]-saearqllws (MIP) reformats were acquired of the central intracranial vasculature. For radiation dose reduction, the following was used: automated exposure control, adjustment of mA and/or kV according to patient size. COMPARISON: [facility], CT, CT HEAD/BRAIN WO CON, 12/03/2023, 4:17. FINDINGS: Image quality: Diagnostic. Anterior circulation: Intracranial internal carotid arteries are normal in size and flow. The flow within the paired anterior cerebral arteries is normal and symmetric. The flow within the middle cerebral arteries is normal and symmetric. The anterior communicating artery is seen. No aneurysms are seen. Posterior circulation: Visualized portions of the vertebral arteries demonstrate normal caliber, and join to form a normal appearing basilar artery. Flow within the posterior cerebral arteries is normal and symmetric. No aneurysms are seen. CSF spaces: Ventricles are normal in size and shape. Basal cisterns are patent. Tiny left para falcine density, not significantly changed from the previous study. This may either represent a very small focal subdural hematoma versus a very small incidental meningioma. Reference current image 20 of series 4 and previous images 20 and 21 of series 2. Brain: No midline shift. No masses. Rivera-white matter interface appears intact. Skull and face: Calvarium and facial bones appear intact, without suspicious lesions. Sinuses: Visualized sinuses and mastoids are clear. IMPRESSION: 1. Unchanged focal left para falcine density. Consider tiny, unchanged subdural hematoma versus tiny incidental meningioma. 2. No other potentially acute findings. Dictated by: Ford Marx M.D. on 12/03/2023 at 8:59 MDM Narrative Medical decision making narrative: 73-year-old female with headache and nausea, many hours yesterday at [facility], consider muscle tension type headache. No weakness to face arm or leg. No numbness or tingling face arm or leg. IV Compazine/Benadryl. CT head noncontrast study ordered. EKG and labs pending. Chest x-ray single view. Impression: ?No active cardiopulmonary pathology. ? Teleradiology CT head without IV contrast. Impressions: ?Small left parafalcine hyperattenuation 2 mm thickness suggestive of tiny subdural hematoma. Comparison with prior studies, follow up, or MRI suggested.? Teleradiology report, after phone call discussion about acute findings with teleradiology liaison 0530, Case discussed with ED physician [facility] Dr. Vazquez, can likely accept ED to ED, however he would like neurosurgery consulted, await call back 0545, records review, faxed copy of [facility] visit on 11/28/2023. Discharge diagnosis elevated blood pressure. Text information mentions patient had elevated blood pressure at [place], was therefore evaluated in ED. No mention in notes of any headache or nausea or vomiting at that time. No imaging studies mentioned. Discharged home with instructions to follow up blood pressure with PCP. 0550, case discussed with [facility] neurosurgery Dr. Tello, who reviewed scan, believes that there is a very small bleed versus artifact from falcine fold only. She recommends repeat noncontrast CT scanning at 4h, then do CT angiogram head. She advises patient be maintained at her usual normal blood pressure, which apparently is not elevated, we will keep IV nicardipine onboard for now. Nausea better after IV Compazine/Benadryl, headache symptoms improving. We will repeat noncontrast head CT scan at 0815. 0700, repeat CT Head noncontrast ordered for 0815, CTA Head to follow. Signed out to Dr Khai Ridley patient seen evaluated by myself. She has been sleeping blood pressure is in the 120 she has been off the nicardipine drip. She still has a slight headache no nausea or vomiting. Marker Machine strength is equal bilaterally able to move toes. CT head neck angio remained stable without significant bleed or worsening subdural. The subdural is again reported as very small, tiny I have contacted [facility] they read conversation with neurosurgeon and ED physician last night reports that if there is no change patient can be discharged home. At this time patient blood pressure is controlled off the nicardipine drip there is a tiny subdural that remained stable and unchanged can go home. Patient has an appointment with PCP in 3 days. Patient will be going home with her daughter who will monitor her. Discussion of strict return precautions and when to return to the ED Critical Care Time <Jona Lyons MD - Last Filed: 12/03/23 16:29> Critical Care Time Critical Care Time: Yes Total Critical Care Time: 35 Attestation: The high probability of a clinically significant, sudden or life threatening deterioration of the [neurological, cerebrovascular, cardiopulmonary] system(s) required my full and direct attention, intervention and personal management. The aggregate critical care time was [35] minutes. This time is in addition to time spent performing reported procedures but includes the following: [x] Data Review and interpretation [x] Patient assessment and monitoring of vital signs [x] Documentation [x] Medication orders and management Discharge Plan Departure Patient Disposition: Home Clinical Impression: Headache, Nausea & vomiting, Acute subdural hematoma Instructions: High Blood Pressure, DI for Subdural Hematoma Activity Restrictions/Additional Instructions: *You have been diagnosed with small subdural and hypertension *What to do: At this time you have a very small amount of blood on your brain which may be causing some of your headache and nausea. It may or may not be related to blood pressure. Her blood pressure here is now controlled. Recommend checking her blood pressure 1 to 2 times daily recording and discussing this with your primary provider on *Continue to take medications as directed Zofran 4 mg every 8 hours if needed for nausea or vomiting Tylenol 650 mg every 4-6 hours if needed for [id number] Avoid ibuprofen, Aleve, naproxen, aspirin, Advil, any NSAID *Follow up with your primary care provider in 2-3 days or call [phone] *Return to ER if you should have worsening headache persistent vomiting weakness facial droop difficulty speaking, blood pressure greater than 200/110, or any new, worsening or concerning symptoms Prescriptions: No Action benzonatate 100 MG capsule 100 mg PO TIDP PRNQty: 0 albuterol sulfate [Ventolin HFA] 90 MCG/PUFF HFA aerosol inhaler 2 puff INH Qty: 0 atorvastatin [Lipitor] 40 MG tablet 40 mg PO QDAY Qty: 0 loratadine [Claritin Liqui-Gel] 10 MG capsule 10 mg PO QDAY Qty: 0 hydrocodone-acetaminophen 5 MG/325 MG tablet 0 tab PO Q6HP PRNQty: 15 0RF ondansetron [Zofran ODT] 4 MG tablet,disintegrating 4 mg Sublingual Q6HP PRNQty: 20 0RF amoxicillin-pot clavulanate [Augmentin] 875 MG/125 MG tablet 875 mg PO BID 14 Days Qty: 0 0RF hydrocodone-acetaminophen 5-325 mg tablet 1 tab PO Q4-6H PRN (Reason: pain) Qty: 10 0RF ketorolac 10 mg tablet 10 mg PO Q6H PRN (Reason: pain) Qty: 14 0RF gabapentin 300 mg capsule 300 mg PO BEDTIME Qty: 14 0RF methylprednisolone [Medrol (Abhijit)] 4 mg tablets,dose pack See Rx Instructions .ROUTE .COMPLEX Qty: 21 0RF Rx Instructions: orally per package directions ondansetron 4 mg tablet,disintegrating 4 mg PO TID-QID PRN (Reason: nausea and vomiting) Qty: 10 0RF ketorolac 10 mg tablet 10 mg PO Q6H PRN (Reason: pain) Qty: 14 0RF methylprednisolone [Medrol (Abhijit)] 4 mg tablets,dose pack See Rx Instructions .ROUTE .COMPLEX Qty: 21 0RF Rx Instructions: orally per package directions ondansetron 4 mg tablet,disintegrating 4 mg PO TID-QID PRN (Reason: nausea and vomiting) Qty: 10 0RF Referrals: Aishwarya Shepherd PA-C [Primary Care Provider] - Stand Alone Forms: Patient Portal/API
--- NOTE | 2023-12-03 04:05 | DI.RAD.S_ITS ---
PROCEDURE: XR CHEST 1V INDICATIONS: chest pain TECHNIQUE: One view of the chest was acquired. COMPARISON: None. FINDINGS: Surgical changes and devices: None. Lungs and pleura: Lungs are clear. No pleural effusions or pneumothorax. Mediastinum: Mediastinal contours appear normal. Heart size is normal. Bones and chest wall: No suspicious bony lesions. Overlying soft tissues appear unremarkable. IMPRESSION: No acute pulmonary process. Dictated by: Candice Mccormick M.D. on 12/03/2023 at 11:59 Approved by: Candice Mccormick M.D. on 12/03/2023 at 11:59
--- NOTE | 2023-12-03 04:11 | DI.CT.S_ITS ---
PROCEDURE: CT HEAD/BRAIN WO CON INDICATIONS: headache TECHNIQUE: Noncontrast 4.5 mm thick angled axial sections acquired from the foramen magnum to the vertex, with coronal and sagittal reformats. For radiation dose reduction, the following was used: automated exposure control, adjustment of mA and/or kV according to patient size. COMPARISON: None. FINDINGS: Image quality: Diagnostic. CSF spaces: Basal cisterns are patent. Probable tiny focal left para falcine subdural hematoma, focally 2 mm thick, on axial images 20 and 21 of series 2. The ventricles are symmetric in size and shape. Brain: As stated above, probable tiny focal left para falcine subdural hematoma. No masses. There is cerebral volume loss for age, with resultant ventricular and sulcal prominence. There are periventricular and deep white matter chronic small vessel ischemic changes. There is intracranial internal carotid artery atherosclerosis. Skull and face: Calvarium and visualized facial bones appear intact, without suspicious lesions. Sinuses: Visualized sinuses and mastoids are clear. IMPRESSION: Tiny focal left para falcine subdural hematoma. No other significant findings. Recommend short interval follow-up CT head. Comment: Final report is concordant with preliminary interpretation provided by [facility]. Dictated by: Ford Marx M.D. on 12/03/2023 at 7:32 Approved by: Ford Marx M.D. on 12/03/2023 at 7:41
[2023-12-03] MEDS: diphenhydrAMINE 50 MG/ML VIAL IV (04:27)
[2023-12-03] MEDS: PROCHLORPERAZINE 10 MG/2 ML VIAL 5 MG IV (04:27)
[2023-12-03] MEDS: SODIUM CHLORIDE 0.9% 1,000 ML 150 ML IV (04:28)
[2023-12-03 04:32] LABS: Add Manual Diff / Slide Review NO; Basophils Absolute Auto 100 /uL (0-100); Basophils Percent Auto 1.1 % (0-2); Eosinophils Absolute Auto 0 /uL (0-450); Eosinophils Percent Auto 0.1 % (2-4); Hematocrit 43.4 % (36-46); Hemoglobin 14.9 g/dL (12.0-16.0); Lymphocytes Absolute Auto 1100 /uL (1100-4500); Lymphocytes Percent Auto 8.4 % (25-40); Mean Corpuscular HGB Conc 34.4 % (30-36); Mean Corpuscular Hemoglobin 29.5 PG (26-34); Mean Corpuscular Volume 85.8 fL (80-100); Monocytes Absolute Auto 400 /uL (0-900); Monocytes Percent Auto 2.9 % (3-14); Neutrophils Absolute Auto 11000 /uL (1500-7000); Neutrophils Percent Auto 87.5 % (50-75); Platelet Count 171 X10^3/uL (150-400); Red Blood Cell Count 5.06 X10^6/uL (4.0-5.2); Red Cell Distribution Width 13.1 % (11.6-14.8); White Blood Cell Count 12.6 X10^3/uL (4.5-11.0)
[2023-12-03 04:41] LABS: Alanine Aminotransferase 27 IU/L (<35); Albumin 4.7 g/dL (3.5-5.0); Albumin Globulin Ratio 1.1 (1.0-2.8); Alkaline Phosphatase 100 U/L (38-126); Aspartate Aminotransferase 30 IU/L (14-36); BUN Creatinine Ratio 19.1 (6-22); Bilirubin Total 1.1 mg/dL (0.2-1.3); Blood Urea Nitrogen 13 mg/dL (7-17); Carbon Dioxide 25 mmol/L (22-32); Chloride 103 mmol/L (98-107); Creatine Kinase 68 U/L (30-135); Estimated Glomerular Filt Rate > 60 mL/min (>60); Globulin 4.1 g/dL (1.7-4.1); Glucose 167 mg/dL (80-110); HEMOLYSIS < 15 (0-50); Lipase 140 U/L (23-300); Potassium 3.5 mmol/L (3.4-5.1); Sodium 137 mmol/L (137-145); Total Protein 8.8 g/dL (6.3-8.2)
[2023-12-03 04:53] LABS: Troponin I < 0.012 ng/mL (0.01-0.034)
--- NOTE | 2023-12-03 04:59 | EKG_ITS ---
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
[2023-12-03] MEDS: NICARDIPINE 25 MG in SODIUM CHLORIDE 0.9% 240 ML 50 MG IV (05:40)
--- NOTE | 2023-12-03 06:07 | PC.NURSE ---
2 attempts made for IV without success will have dayshift attempt with the ultrasound machine.
[2023-12-03 06:32] LABS: Adenovirus Not Detected (Not Detect); B. parapertussis Not Detected (Not Detecte); Bordetella pertussis Not Detected (Not Detect); Chlamydophila pneumoniae Not Detected (Not Detect); Coronavirus 229E Not Detected (Not Detect); Coronavirus HKU1 Not Detected (Not Detect); Coronavirus NL 63 Not Detected (Not Detect); Coronavirus OC43 Not Detected (Not Detect); Human Metapneumovirus Not Detected (Not Detect); Human Rhinovirus/Enterovirus Not Detected (Not Detect); Influenza A Not Detected (Not Detect); Influenza B Not Detected (Not Detect); Mycoplasma pneumoniae Not Detected (Not Detect); Parainfluenza Virus 1 Not Detected (Not Detect); Parainfluenza Virus 2 Not Detected (Not Detect); Parainfluenza Virus 3 Not Detected (Not Detect); Parainfluenza Virus 4 Not Detected (Not Detect); Respiratory Syncytial Virus Not Detected (Not Detect); SARS- CoV-2 Not Detected (Not Detecte)
--- NOTE | 2023-12-03 06:51 | DI.CT.S_ITS ---
PROCEDURE: CT ANGIO HEAD INDICATIONS: Headache, parafalcine SDH vs other, interval rpt study TECHNIQUE: Precontrast 4.5 mm thick angled axial sections acquired from the foramen magnum to the vertex. After the administration of intravenous contrast, 1 mm thick sections acquired through the [place]. Postcontrast 4.5 mm thick sections then re-acquired from the foramen magnum to the vertex. 10 mm thick uijsrgf-ijjdvhlut-zeemnhftcj (MIP) reformats were acquired of the central intracranial vasculature. For radiation dose reduction, the following was used: automated exposure control, adjustment of mA and/or kV according to patient size. COMPARISON: [facility], CT, CT HEAD/BRAIN WO CON, 12/03/2023, 4:17. FINDINGS: Image quality: Diagnostic. Anterior circulation: Intracranial internal carotid arteries are normal in size and flow. The flow within the paired anterior cerebral arteries is normal and symmetric. The flow within the middle cerebral arteries is normal and symmetric. The anterior communicating artery is seen. No aneurysms are seen. Posterior circulation: Visualized portions of the vertebral arteries demonstrate normal caliber, and join to form a normal appearing basilar artery. Flow within the posterior cerebral arteries is normal and symmetric. No aneurysms are seen. CSF spaces: Ventricles are normal in size and shape. Basal cisterns are patent. Tiny left para falcine density, not significantly changed from the previous study. This may either represent a very small focal subdural hematoma versus a very small incidental meningioma. Reference current image 20 of series 4 and previous images 20 and 21 of series 2. Brain: No midline shift. No masses. Rivera-white matter interface appears intact. Skull and face: Calvarium and facial bones appear intact, without suspicious lesions. Sinuses: Visualized sinuses and mastoids are clear. IMPRESSION: 1. Unchanged focal left para falcine density. Consider tiny, unchanged subdural hematoma versus tiny incidental meningioma. 2. No other potentially acute findings. Dictated by: Ford Marx M.D. on 12/03/2023 at 8:59 Approved by: Ford Marx M.D. on 12/03/2023 at 9:10
== END 2023-12-03 10:45 | disposition home or self-care (01) ==
PROVIDERS: Emergency Medicine; Emergency Provider Emergency Medicine; Family Provider Family Medicine; PCP Physician Assistant Medical
DX: I62.01 Nontraumatic acute subdural hemorrhage (principal); R11.2 Nausea with vomiting, unspecified; R03.0 Elevated blood-pressure reading, without diagnosis of hypertension
CPT/HCPCS: 36415; 70450; 70496; 71045; 80053; 82550; 83690; 84484; 85025; 87633; 93005; 96365; 96375; 99284; 99291; J0780; J1200; Q9967

== ENCOUNTER 2024-06-13 10:18 | Emergency (ER) | payer MEDICARE, OTHER, SELFPAY ==
[2024-06-13 10:25] VITALS: BP 150/67; PULSE 96; RESP 14; TEMP 36.4; O2SAT 97; BMI 26.9
--- NOTE | 2024-06-13 10:33 | ED.SKABFB ---
HPI - Skin/Abscess/Foreign Bdy General Chief complaint: Skin/Abscess/Foreign Body Stated complaint: Lump in neck Time Seen by Provider: 06/13/24 10:33 Mode of arrival: Ambulatory History of Present Illness HPI narrative: 74-year-old female with a history of hyperlipidemia hypertension presents to the emergency department from the walk-in clinic for evaluation of lump on the right cheek. Patient concerned that there is infection to her face but denies any trauma. Walk-in clinic informed patient that she would need to be evaluated here in the emergency department to obtain imaging therefore presents here to the emergency department. She denies any trauma or falls denies any visual issues no headache no trismus, difficulty swallowing or breathing. States it started spontaneously approximately 3 days ago spontaneously. States it is to the right side of her submandibular region. States that she is up-to-date on all her vaccines including MMR. Related Data Home Medications Medication Instructions Recorded Confirmed atorvastatin 40 mg tablet (Lipitor) 40 mg PO QDAY ##0 05/27/17 06/13/24 clopidogrel [Plavix] PO 06/13/24 06/13/24 losartan PO 06/13/24 06/13/24 Previous Rx's Medication Instructions Recorded amoxicillin 875 mg-potassium 1 tab PO BID 1 week #14 tabs 06/13/24 clavulanate 125 mg tablet Allergies Allergy/AdvReac Type Severity Reaction Status Date / Time aspirin [ASPIRIN] Allergy Intermediate Verified 06/13/24 10:25 Review of Systems Review of Systems Narrative: General: Denies fever, chills, weight loss HEENT: Positive right submandibular swelling, Denies headache, eye drainage, eye irritation, head trauma, sore throat, voice change Cardiovascular: Denies any chest pain, palpitations, shortness of breath, tachycardia Respiratory: Denies any shortness of breath, cough, wheeze, stridor GI/: Denies any abdominal pain, nausea, vomiting, diarrhea, bright red blood per rectum, melanotic stools, urinary frequency, urinary retention, dysuria, hematuria MSK: Denies any joint pain, muscle pains, swelling Skin: Denies any rashes, lesions, discoloration Neuro: Denies any headache, lightheadedness, dizziness, fainting, weakness Psych: Denies SI/HI Patient History Social History (Reviewed 10/21/22 @ 17:19 by TERRI Jack Smoking Status: Unknown if ever smoked Smoking Status: Unknown if ever smoked Exam Narrative Exam Narrative: General: Cooperative, comfortable, well-developed, not in acute distress HEENT: Mild swelling noted to the right submandibular region, however no overlying erythema, minor tenderness to palpation no streaking, patient tolerating secretions speaking full sentences no voice changes no stridor no trismus, posterior oropharynx is clear without any signs of obstruction uvula midline, Normocephalic, atraumatic, PERRLA, normal sclera, eyelids normal, Neck: Active full range of motion, atraumatic Chest: Normal to inspection, negative crepitus, no overlying erythema ecchymosis Respiratory: Normal respiratory effort, not in acute respiratory distress, clear to auscultation bilaterally negative cough, wheeze, tachypnea, rhonchi, rales Cardiology: Regular rate rhythm negative gallop, murmur, rubs GI/: Normal to inspection, soft, nonrigid, no tenderness to palpation, exam deferred MSK: Full range of active range of motion of all 4 extremities, atraumatic Skin: No rashes lesions noted Neuro: Alert awake oriented x3, moves all 4 extremities spontaneously, cranial nerves intact, able to answer all questions appropriately follows commands appropriately Psych: Cooperative, negative suicidal or homicidal ideations Initial Vital Signs Initial Vital Signs: Vital Signs Temperature 97.6 F 06/13/24 10:25 Pulse Rate 96 H 06/13/24 10:25 Respiratory Rate 14 06/13/24 10:25 Blood Pressure 150/67 H 06/13/24 10:25 Pulse Oximetry 97 06/13/24 10:25 Oxygen Delivery Method Room Air 06/13/24 10:25 Course Orders Ordered: ED Orders 06/13/24 10:40 CT soft tissue neck w con Stat 06/13/24 11:18 BMP [Basic Metabolic Panel] Stat CBC Auto Diff [Complete Blood Count AUTO DIFF] Stat Discontinued Medications Acetaminophen (Acetaminophen 325 Mg Tablet) 650 mg PO NOW ONE Stop: 06/13/24 11:26 Last Admin: 06/13/24 11:30 Dose: 650 mg Documented By: JUAN Ketorolac Tromethamine (Ketorolac 30 Mg/Ml Vial) 15 mg IV NOW ONE Stop: 06/13/24 10:41 Last Admin: 06/13/24 11:34 Dose: Not Given Documented By: JUAN Vital Signs Vital signs: Vital Signs - 8 hr 06/13/24 10:25 Temperature 97.6 F Pulse Rate 96 H Respiratory Rate 14 Blood Pressure 150/67 H Pulse Oximetry 97 Oxygen Delivery Method Room Air MDM - Skin/Abscess/Foreign Bdy Differential Diagnosis Differential diagnosis: Likely abscess of skin or subcutaneous tissue and other (Parotitis, lymphedema) Lab Data 06/13/24 11:18 06/13/24 11:18 Labs: Lab Results 06/13/24 Range/Units 11:18 WBC 10.0 (4.5-11.0) X10^3/uL RBC 4.90 (4.0-5.2) X10^6/uL Hgb 14.4 (12.0-16.0) g/dL Hct 42.5 (36-46) % MCV 86.8 (80-100) fL MCH 29.3 (26-34) PG MCHC 33.8 (30-36) % RDW 13.0 (11.6-14.8) % Plt Count 159 (150-400) X10^3/uL Neut % (Auto) 73.3 (50-75) % Lymph % (Auto) 18.3 L (25-40) % [place] % (Auto) 6.9 (3-14) % Eos % (Auto) 0.9 L (2-4) % Baso % (Auto) 0.6 (0-2) % Neut # (Auto) 7300 H (2678-8842) /uL Lymph # (Auto) 1800 (2910-1599) /uL [place] # (Auto) 700 (0-900) /uL Eos # (Auto) 100 (0-450) /uL Baso # (Auto) 100 (0-100) /uL Sodium 139 (137-145) mmol/L Potassium 4.0 (3.4-5.1) mmol/L Chloride 105 (98-107) mmol/L Carbon Dioxide 24 (22-32) mmol/L BUN 15 (7-17) mg/dL Creatinine 0.83 (0.52-1.04) mg/dL Estimated GFR > 60 (>60) mL/min BUN/Creatinine Ratio 18.1 (6-22) Glucose 130 H (80-110) mg/dL Calcium 9.7 (8.4-10.2) mg/dL Imaging Data CT soft tissue neck: Radiologist's Impression: [address] [address] [address] Scan Report Signed Patient: Lea Darden MR#: [id number] : 1950 Acct:[id number] Age/Sex: 74 / F Date of Service: 06/13/24 Loc: ED Accession Number: [id number] Procedure: CT soft tissue neck w con Ordering Provider: Mitchell Rodriguez D.O. PROCEDURE: CT SOFT TISSUE NECK W CON INDICATIONS: Right submandibular swelling TECHNIQUE: After the administration of intravenous contrast, 3.0 mm axial sections acquired from the sella to the aortic arch. Additional oblique axial 3.0 mm sections acquired through the pharynx. 3 mm thick coronal and sagittal reformats were generated. For radiation dose reduction, the following was used: automated exposure control. COMPARISON: [facility], CT, CT HEAD/BRAIN WO CON, 12/03/2023, 4:17. [facility], CT, CT ANGIO HEAD, 12/03/2023, 8:18. FINDINGS: Image quality: There is artifact associated with the metallic hardware. Artifact from the metallic hardware is reduced by metal reconstruction algorithm. Lymph nodes: No enlarged lymph nodes seen throughout the neck. However, borderline prominent cervical lymph nodes are seen. Vessels: Visualized vasculature appears patent. Neck spaces: The oropharynx, nasopharynx, and pharynx demonstrate no mucosal lesions. The vocal cords, false vocal cords, pyriform sinuses, epiglottis, vallecula, and tongue base all appear normal. Extramucosal spaces appear unremarkable. Glands: Generalized swelling and increased enhancement can be seen involving the inferior aspect of the right parotid. Within the inferior right parotid, there is an apparent hypodense nodule measuring up to 14 mm. Mild surrounding inflammatory change can be seen within the soft tissues. No definite right parotid duct swelling is seen. No right parotid stones are seen. The left parotid gland demonstrates an unremarkable appearance. The submandibular glands themselves demonstrate a normal, symmetric appearance. Thyroid gland demonstrates no significant abnormality. Miscellaneous: Visualized brain and orbits appear normal. Lung apices appear clear. Superficial soft tissues appear normal. Bones: No suspicious bony lesions. Visualized sinuses and mastoids appear unremarkable. IMPRESSION: These imaging findings are most compatible with inflammation of the right parotid gland. An underlying mass is possible, yet considered to be less likely. No enlarged right parotid duct or parotid stones can be seen. Once the patient's clinical episode has subsided, please consider a follow-up dedicated soft tissue protocol neck CT for further evaluation. The submandibular glands themselves demonstrate a normal, symmetric appearance. MDM Narrative Medical decision making narrative: 74-year-old female with a history of hypertension hyperlipidemia presenting for right submandibular swelling pain started approximately 3 days ago no voice changes no stridor no trismus no overlying erythema ecchymosis posterior oropharynx clear without any signs of obstruction. She states nothing is making the symptoms better or worse. States that she is up-to-date on her MMR vaccine, no known exposure to anybody sick no recent travel. Patient had lab work CT soft tissue neck performed here showing parotitis with possible underlying mass, patient without leukocytosis however given tenderness to palpation will treat symptomatically for pain as well as start patient prophylactically for supportive parotitis with Augmentin, she was instructed follow up with primary care and ears nose throat in outpatient setting she was given strict return precautions she verbalized understanding of this and agrees to being discharged home with outpatient follow up Patient states that she is up-to-date on her vaccinations including MMR, however will send for IgG/IgM for completeness sake and have patient follow up these results with her primary care doctor given these results are send outs. Discharge Plan Departure Patient Disposition: Home Clinical Impression: Acute parotitis Activity Restrictions/Additional Instructions: Please follow up with the primary care doctor for your mumps antibody results, as well as our staffing executive in outpatient setting Please read the discharge instructions sheet carefully and bring all papers to all doctor follow-up visits, as it may contain information that your doctor may want to see. Disease processes change and evolve, if your symptoms worsen or if you develop any new symptoms that are concerning to you please return for evaluation. Your evaluation today does not show any evidence of any life-threatening/serious illnesses requiring admission to the hospital or surgery. Please follow-up with your doctor for re-evaluation in approximately 1 day. Seek immediate medical attention for any worrisome symptoms. *If you do not have a primary care provider please contact the [facility] Resource line at [phone]. They will ask some questions about your medical history and help get you set up with a doctor in the community. Prescriptions: New amoxicillin-pot clavulanate 875-125 mg tablet 1 tab PO BID 7 Days Qty: 14 0RF No Action clopidogrel [Plavix] PO losartan PO atorvastatin [Lipitor] 40 MG tablet 40 mg PO QDAY Qty: 0 Referrals: Dano Orourke MD [Physician] - Aishwarya Shepherd PA-C [Primary Care Provider] - Stand Alone Forms: Patient Portal/API/Survey
--- NOTE | 2024-06-13 10:40 | DI.CT.S_ITS ---
PROCEDURE: CT SOFT TISSUE NECK W CON INDICATIONS: Right submandibular swelling TECHNIQUE: After the administration of intravenous contrast, 3.0 mm axial sections acquired from the sella to the aortic arch. Additional oblique axial 3.0 mm sections acquired through the pharynx. 3 mm thick coronal and sagittal reformats were generated. For radiation dose reduction, the following was used: automated exposure control. COMPARISON: [facility], CT, CT HEAD/BRAIN WO CON, 12/03/2023, 4:17. [facility], CT, CT ANGIO HEAD, 12/03/2023, 8:18. FINDINGS: Image quality: There is artifact associated with the metallic hardware. Artifact from the metallic hardware is reduced by metal reconstruction algorithm. Lymph nodes: No enlarged lymph nodes seen throughout the neck. However, borderline prominent cervical lymph nodes are seen. Vessels: Visualized vasculature appears patent. Neck spaces: The oropharynx, nasopharynx, and pharynx demonstrate no mucosal lesions. The vocal cords, false vocal cords, pyriform sinuses, epiglottis, vallecula, and tongue base all appear normal. Extramucosal spaces appear unremarkable. Glands: Generalized swelling and increased enhancement can be seen involving the inferior aspect of the right parotid. Within the inferior right parotid, there is an apparent hypodense nodule measuring up to 14 mm. Mild surrounding inflammatory change can be seen within the soft tissues. No definite right parotid duct swelling is seen. No right parotid stones are seen. The left parotid gland demonstrates an unremarkable appearance. The submandibular glands themselves demonstrate a normal, symmetric appearance. Thyroid gland demonstrates no significant abnormality. Miscellaneous: Visualized brain and orbits appear normal. Lung apices appear clear. Superficial soft tissues appear normal. Bones: No suspicious bony lesions. Visualized sinuses and mastoids appear unremarkable. IMPRESSION: These imaging findings are most compatible with inflammation of the right parotid gland. An underlying mass is possible, yet considered to be less likely. No enlarged right parotid duct or parotid stones can be seen. Once the patient's clinical episode has subsided, please consider a follow-up dedicated soft tissue protocol neck CT for further evaluation. The submandibular glands themselves demonstrate a normal, symmetric appearance. Dictated by: Jovan Sanchez M.D. on 06/13/2024 at 11:24 Approved by: Jovan Sanchez M.D. on 06/13/2024 at 11:28
[2024-06-13 11:24] LABS: Add Manual Diff / Slide Review NO; Basophils Absolute Auto 100 /uL (0-100); Basophils Percent Auto 0.6 % (0-2); Eosinophils Absolute Auto 100 /uL (0-450); Eosinophils Percent Auto 0.9 % (2-4); Hematocrit 42.5 % (36-46); Hemoglobin 14.4 g/dL (12.0-16.0); Lymphocytes Absolute Auto 1800 /uL (1100-4500); Lymphocytes Percent Auto 18.3 % (25-40); Mean Corpuscular HGB Conc 33.8 % (30-36); Mean Corpuscular Hemoglobin 29.3 PG (26-34); Mean Corpuscular Volume 86.8 fL (80-100); Monocytes Absolute Auto 700 /uL (0-900); Monocytes Percent Auto 6.9 % (3-14); Neutrophils Absolute Auto 7300 /uL (1500-7000); Neutrophils Percent Auto 73.3 % (50-75); Platelet Count 159 X10^3/uL (150-400)
[2024-06-13] MEDS: ACETAMINOPHEN 325 MG TABLET 650 MG PO (11:30)
[2024-06-13 11:39] LABS: BUN Creatinine Ratio 18.1 (6-22); Blood Urea Nitrogen 15 mg/dL (7-17); Calcium 9.7 mg/dL (8.4-10.2); Carbon Dioxide 24 mmol/L (22-32); Chloride 105 mmol/L (98-107); Estimated Glomerular Filt Rate > 60 mL/min (>60); Glucose 130 mg/dL (80-110); HEMOLYSIS < 15 (0-50); Sodium 139 mmol/L (137-145)
--- NOTE | 2024-06-13 11:56 | PC.NURSE ---
Patient here in department for lump on right neck that she noticed on sunday. Patients lump is hard and tender to touch, patients tonsils also appear to be swollen. Patient is maintaining secretions and does not feel short of breath, respirations are even and unlabored. Has been told by providers in the past that she has throat issues and shouldnt be eating nuts patient is unclear what throat problems she has.
[2024-06-13] MEDS: AMOXICILLIN/CLAV 875/125 MG 1 TAB PO (12:54)
[2024-06-13 13:21] VITALS: BP 141/66; PULSE 73; RESP 16; O2SAT 98
[2024-06-16 14:08] LABS: Mumps Virus IgG Antibody 63.6 AU/mL (Immune >10.9)
== END 2024-06-13 13:22 | disposition home or self-care (01) ==
PROVIDERS: Emergency Provider Student in an Organized Health Care Education/Training Program; Family Provider Family Medicine; PCP Physician Assistant Medical
DX: K11.21 Acute sialoadenitis (principal); E78.5 Hyperlipidemia, unspecified; I10 Essential (primary) hypertension
CPT/HCPCS: 36415; 70491; 80048; 85025; 86735; 99283; 99284; Q9967

== ENCOUNTER 2024-07-02 15:42 | Emergency (ER) | payer MEDICARE, OTHER, SELFPAY ==
[2024-07-02] VITALS (15 sets, daily range): BP systolic 144–194; BP diastolic 66–80; PULSE 60–80; RESP 16–23; TEMP 36.6–36.9; O2SAT 88–100; BMI 26.9
--- NOTE | 2024-07-02 15:50 | DI.RAD.S_ITS ---
PROCEDURE: XR CHEST 1V INDICATIONS: chest pain TECHNIQUE: One view of the chest was acquired. COMPARISON: , CR, XR CHEST 1V, 12/03/2023, 4:11. FINDINGS: Surgical changes and devices: None. Lungs and pleura: Lungs are clear. No pleural effusions or pneumothorax. Mediastinum: Mediastinal contours appear normal. Heart size is normal. Bones and chest wall: No suspicious bony lesions. Overlying soft tissues appear unremarkable. IMPRESSION: No acute cardiopulmonary abnormality is seen. Dictated by: Sebastian Malone M.D. on 07/02/2024 at 16:34 Approved by: Sebastian Malone M.D. on 07/02/2024 at 16:35
--- NOTE | 2024-07-02 15:52 | EKG_ITS ---
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
--- NOTE | 2024-07-02 15:53 | DI.CT.S_ITS ---
PROCEDURE: CT HEAD/BRAIN WO CON INDICATIONS: tingling on left side of body TECHNIQUE: Noncontrast 4.5 mm thick angled axial sections acquired from the foramen magnum to the vertex, with coronal and sagittal reformats. For radiation dose reduction, the following was used: automated exposure control, adjustment of mA and/or kV according to patient size. COMPARISON: [facility], CT, CT HEAD/BRAIN WO CON, 12/03/2023, 4:17. FINDINGS: Image quality: Diagnostic. CSF spaces: Basal cisterns are patent. No extra-axial fluid collections. The ventricles are symmetric in size and shape. Brain: No intracranial bleeds or masses. There is cerebral volume loss for age, with resultant ventricular and sulcal prominence. There are periventricular and deep white matter chronic small vessel ischemic changes. There is intracranial internal carotid artery atherosclerosis. Skull and face: Calvarium and visualized facial bones appear intact, without suspicious lesions. Sinuses: Visualized sinuses and mastoids are clear. IMPRESSION: No acute intracranial pathology. Dictated by: Sebastian Malone M.D. on 07/02/2024 at 16:33 Approved by: Sebastian Malone M.D. on 07/02/2024 at 16:34
[2024-07-02 16:12] LABS: Add Manual Diff / Slide Review NO; Basophils Absolute Auto 100 /uL (0-100); Basophils Percent Auto 0.7 % (0-2); Eosinophils Absolute Auto 100 /uL (0-450); Eosinophils Percent Auto 0.8 % (2-4); Hematocrit 41.6 % (36-46); Hemoglobin 14.1 g/dL (12.0-16.0); Lymphocytes Absolute Auto 2400 /uL (1100-4500); Lymphocytes Percent Auto 31.4 % (25-40); Mean Corpuscular Hemoglobin 29.6 PG (26-34); Mean Corpuscular Volume 87.2 fL (80-100); Monocytes Absolute Auto 500 /uL (0-900); Monocytes Percent Auto 7.2 % (3-14); Neutrophils Absolute Auto 4600 /uL (1500-7000); Neutrophils Percent Auto 59.9 % (50-75); Platelet Count 188 X10^3/uL (150-400); Red Blood Cell Count 4.77 X10^6/uL (4.0-5.2); Red Cell Distribution Width 13.1 % (11.6-14.8); White Blood Cell Count 7.6 X10^3/uL (4.5-11.0)
[2024-07-02 16:19] LABS: Prothrombin Time 11.1 SECONDS (9.4-12.5)
[2024-07-02 16:22] LABS: PTT Partial Thromboplastin Tim 29 SECONDS (25.1-36.5)
[2024-07-02 16:25] LABS: Alanine Aminotransferase 40 IU/L (<35); Albumin 4.8 g/dL (3.5-5.0); Albumin Globulin Ratio 1.2 (1.0-2.8); Alkaline Phosphatase 67 U/L (38-126); Aspartate Aminotransferase 34 IU/L (14-36); BUN Creatinine Ratio 22.5 (6-22); Bilirubin Total 0.6 mg/dL (0.2-1.3); Blood Urea Nitrogen 18 mg/dL (7-17); Calcium 10.2 mg/dL (8.4-10.2); Carbon Dioxide 26 mmol/L (22-32); Chloride 105 mmol/L (98-107); Creatine Kinase 73 U/L (30-135); Estimated Glomerular Filt Rate > 60 mL/min (>60); Globulin 4.1 g/dL (1.7-4.1); Glucose 111 mg/dL (80-110); HEMOLYSIS < 15 (0-50); Lipase 228 U/L (23-300); Magnesium 1.7 mg/dL (1.6-2.3); Potassium 4.1 mmol/L (3.4-5.1); Sodium 142 mmol/L (137-145); Total Protein 8.9 g/dL (6.3-8.2)
[2024-07-02 16:37] LABS: NT-proBNP (BNP-Adult 18+) 199 pg/mL (<450); Troponin I < 0.012 ng/mL (0.01-0.034)
[2024-07-02 17:28] LABS: Bacteria Urine Few (2-10); Culture Indicated Urine Specimen Cultured; RBC Urine None Seen (0-5/HPF); Squamous Epithelial Cell Urine 5-10 /HPF (0-5/HPF); Urine Volume 10mL (spun); WBC Urine 5-10/HPF (0-5/HPF)
--- NOTE | 2024-07-02 18:00 | ED.CHESTPAIN ---
HPI - Chest Pain General Chief Complaint: Chest Pain Stated Complaint: heart issues getting worse Time Seen by Provider: 07/02/24 17:59 Source: patient Mode of arrival: Ambulatory Limitations: no limitations History of Present Illness HPI narrative: 74-year-old female follow up by a neurologist Dr Wells for left-sided arm and leg tingling of unclear cause, denies previous history of heart attack or coronary vessel interventions, complains of left lateral chest discomfort since this morning. No trauma injury. No neck surgeries. No history of stroke recalled. No headache. No associated nausea or vomiting. No weakness to face arm or leg. No facial numbness or tingling. No associated diaphoresis. Chest pain is not worse with deep breathing or truncal movements. No history of blood clots to lungs or legs known. No leg pain or swelling symptoms. Related Data Home Medications Medication Instructions Recorded Confirmed atorvastatin 40 mg tablet (Lipitor) 40 mg PO QDAY ##0 05/27/17 06/13/24 clopidogrel [Plavix] PO 06/13/24 06/13/24 losartan PO 06/13/24 06/13/24 Allergies Allergy/AdvReac Type Severity Reaction Status Date / Time aspirin [ASPIRIN] Allergy Intermediate Verified 06/13/24 10:25 Patient History Social History Smoking Status: Never smoker Smoking Status: Never smoker Exam Narrative Exam Narrative: GENERAL: Well-developed patient, in mild distress. HEAD: Atraumatic. Normocephalic. EYES: Pupils equal round and reactive. Extraocular motions intact. No scleral icterus. No injection or drainage. ENT: Nose without bleeding, purulent drainage. Throat without erythema, tonsillar hypertrophy or exudate. Airway patent. NECK: Trachea midline. Non tender CARDIOVASCULAR: Regular rate and rhythm without murmurs, gallops, or rubs. RESPIRATORY: Clear to auscultation. Breath sounds equal bilaterally. No wheezes, rales, or rhonchi. No skin rash or bruising or tenderness to palpation chest wall. GASTROINTESTINAL: Abdomen soft, non-tender, nondistended. EXTREMITIES: No edema or joint tenderness. BACK: Nontender without deformity or crepitance. No flank tenderness. NEURO: AOx3. Motor functions grossly nonfocal SKIN: No rash or erythema of visible areas Initial Vital Signs Initial Vital Signs: Vital Signs Temperature 98.4 F 07/02/24 15:46 Pulse Rate 80 07/02/24 15:46 Respiratory Rate 16 07/02/24 15:46 Blood Pressure 149/80 H 07/02/24 15:46 Pulse Oximetry 98 07/02/24 15:46 Oxygen Delivery Method Room Air 07/02/24 15:46 Course Orders Ordered: ED Orders 07/02/24 18:11 CT angio chest PE protocol Stat 07/02/24 18:15 Troponin I Stat Discontinued Medications Ketorolac Tromethamine (Ketorolac 30 Mg/Ml Vial) 15 mg IV NOW ONE Stop: 07/02/24 18:20 Last Admin: 07/02/24 18:47 Dose: 15 mg Documented By: INSH Vital Signs Vital signs: Vital Signs - 8 hr 07/02/24 19:48 07/02/24 19:49 07/02/24 19:49 Temperature Pulse Rate 65 60 Respiratory Rate 16 Blood Pressure 151/66 H Pulse Oximetry 88 L 99 07/02/24 20:00 07/02/24 20:00 07/02/24 20:30 Temperature Pulse Rate 61 63 Respiratory Rate 18 18 Blood Pressure 144/67 H Pulse Oximetry 98 99 07/02/24 20:30 07/02/24 21:00 07/02/24 21:00 Temperature Pulse Rate 60 Respiratory Rate 22 Blood Pressure 161/69 H 157/69 H Pulse Oximetry 100 07/02/24 21:30 07/02/24 21:30 07/02/24 21:51 Temperature 97.8 F Pulse Rate 60 Respiratory Rate 21 Blood Pressure 164/72 H Pulse Oximetry 100 MDM - Chest Pain Lab Data Attestation: I reviewed the patient's lab results. Lab results narrative: White blood cell count 7600, hemoglobin 14.1, platelets adequate. Basic metabolic panel unremarkable. LFTs and lipase normal. Troponin negative/unmeasurable. BNP 199 normal 07/02/24 16:05 07/02/24 16:05 Labs: Lab Results 07/02/24 07/02/24 07/02/24 Range/Units 16:05 16:21 18:15 WBC 7.6 (4.5-11.0) X10^3/uL RBC 4.77 (4.0-5.2) X10^6/uL Hgb 14.1 (12.0-16.0) g/dL Hct 41.6 (36-46) % MCV 87.2 (80-100) fL MCH 29.6 (26-34) PG MCHC 34.0 (30-36) % RDW 13.1 (11.6-14.8) % Plt Count 188 (150-400) X10^3/uL Neut % (Auto) 59.9 (50-75) % Lymph % (Auto) 31.4 (25-40) % [place] % (Auto) 7.2 (3-14) % Eos % (Auto) 0.8 L (2-4) % Baso % (Auto) 0.7 (0-2) % Neut # (Auto) 4600 (9306-6587) /uL Lymph # (Auto) 2400 (8488-2726) /uL [place] # (Auto) 500 (0-900) /uL Eos # (Auto) 100 (0-450) /uL Baso # (Auto) 100 (0-100) /uL PT 11.1 (9.4-12.5) SECONDS INR 1.0 (0.9-1.3) APTT 29 (25.1-36.5) SECONDS Sodium 142 (137-145) mmol/L Potassium 4.1 (3.4-5.1) mmol/L Chloride 105 (98-107) mmol/L Carbon Dioxide 26 (22-32) mmol/L BUN 18 H (7-17) mg/dL Creatinine 0.80 (0.52-1.04) mg/dL Estimated GFR > 60 (>60) mL/min BUN/Creatinine Ratio 22.5 H (6-22) Glucose 111 H (80-110) mg/dL Calcium 10.2 (8.4-10.2) mg/dL Magnesium 1.7 (1.6-2.3) mg/dL Total Bilirubin 0.6 (0.2-1.3) mg/dL AST 34 (14-36) IU/L ALT 40 H (<35) IU/L Alkaline Phosphatase 67 (38-126) U/L Total Creatine Kinase 73 (30-135) U/L Troponin I < 0.012 < 0.012 (0.01-0.034) ng/mL NT-Pro-B Natriuret Pep 199 (<450) pg/mL Total Protein 8.9 H (6.3-8.2) g/dL Albumin 4.8 (3.5-5.0) g/dL Globulin 4.1 (1.7-4.1) g/dL Albumin/Globulin Ratio 1.2 (1.0-2.8) Lipase 228 (23-300) U/L Urine RBC None seen (0-5/HPF) Urine WBC 5-10/hpf H (0-5/HPF) Ur Squamous Epith Cells 5-10 /hpf H (0-5/HPF) Urine Bacteria Few (2-10) H (None) Ur Culture Indicated? Specimen cultured Vol Urine Centrifuged 10ml (spun) Urine Dip Bedside Urine Glucose Negative Bedside Urine Bilirubin - Negative Bedside Urine Ketone - Negative Urine Specific [place] 1.010 Bedside Urine Occult Blood + Bedside Urine pH 6.0 Bedside Urine Protein - Negative Bedside Urine Urobilinogen - Negative Bedside Urine Nitrite - Negative Bedside Urine Leukocytes +/- 15 Esterase Imaging Data Chest x-ray: Radiologist's Impression: [address] [address] XRay Report Signed Patient: Lea Darden MR#: [id number] : 1950 Acct:[id number] Age/Sex: 74 / F Date of Service: 07/02/24 Loc: ED Accession Number: [id number] Procedure: XR chest 1V Ordering Provider: Rik Ochoa MD PROCEDURE: XR CHEST 1V INDICATIONS: chest pain TECHNIQUE: One view of the chest was acquired. COMPARISON: [facility], , XR CHEST 1V, 12/03/2023, 4:11. FINDINGS: Surgical changes and devices: None. Lungs and pleura: Lungs are clear. No pleural effusions or pneumothorax. Mediastinum: Mediastinal contours appear normal. Heart size is normal. Bones and chest wall: No suspicious bony lesions. Overlying soft tissues appear unremarkable. IMPRESSION: No acute cardiopulmonary abnormality is seen. Dictated by: Sebastian Malone M.D. on 07/02/2024 at 16:34 Approved by: Sebastian Malone M.D. on 07/02/2024 at 16:35 CT scan - head: Radiologist's Impression: [address] [address] [address] Scan Report Signed Patient: Lea Darden MR#: [id number] : 1950 Acct:[id number] Age/Sex: 74 / F Date of Service: 07/02/24 Loc: ED Accession Number: [id number] Procedure: CT head/brain wo con Ordering Provider: Rik Ochoa MD PROCEDURE: CT HEAD/BRAIN WO CON INDICATIONS: tingling on left side of body TECHNIQUE: Noncontrast 4.5 mm thick angled axial sections acquired from the foramen magnum to the vertex, with coronal and sagittal reformats. For radiation dose reduction, the following was used: automated exposure control, adjustment of mA and/or kV according to patient size. COMPARISON: [facility], CT, CT HEAD/BRAIN WO CON, 12/03/2023, 4:17. FINDINGS: Image quality: Diagnostic. CSF spaces: Basal cisterns are patent. No extra-axial fluid collections. The ventricles are symmetric in size and shape. Brain: No intracranial bleeds or masses. There is cerebral volume loss for age, with resultant ventricular and sulcal prominence. There are periventricular and deep white matter chronic small vessel ischemic changes. There is intracranial internal carotid artery atherosclerosis. Skull and face: Calvarium and visualized facial bones appear intact, without suspicious lesions. Sinuses: Visualized sinuses and mastoids are clear. IMPRESSION: No acute intracranial pathology. Dictated by: Sebastian Malone M.D. on 07/02/2024 at 16:33 Approved by: Sebastian Malone M.D. on 07/02/2024 at 16:34 CT - cervical spine: Radiologist's Impression: Close Chest CTA (Signed) Carolina Dillon - 07/02/[address] (Signed) Carolina Dillon - 07/02/[address] (Signed) Sebastian Malone - 07/02/24 Chest X-Ray (Signed) Sebastian Malone - 07/02/24 Launch?[place] [address] CT Scan Report Signed Patient: Lea Darden MR#: [id number] : 1950 Acct:[id number] Age/Sex: 74 / F Date of Service: 07/02/24 Loc: ED Accession Number: [id number] Procedure: CT cervical spine wo con Ordering Provider: Jona Lyons MD PROCEDURE: CT CERVICAL SPINE WO CON INDICATIONS: tingling left side TECHNIQUE: Noncontrast 3 mm thick sections acquired from the skull base to the T4 level. Sagittal and coronal reformats were then constructed. For radiation dose reduction, the following was used: automated exposure control, adjustment of mA and/or kV according to patient size. COMPARISON: None. FINDINGS: Image quality: Excellent. Bones: The craniocervical junction is intact. Mild degenerative space loss and spurring at the atlantodental interval. No cervical vertebral body fractures or pathologic subluxation. Fairly normal disc height without visible bulge. Soft tissues: Prevertebral soft tissues are normal in thickness. No paravertebral hematomas. No apical pneumothoraces. IMPRESSION: No CT evidence of acute cervical spine injury. No CT evidence of significant central canal or foraminal stenosis. Dictated by: Carolina Dillon M.D. on 07/02/2024 at 19:39 Approved by: Carolina Dillon M.D. on 07/02/2024 at 19:42 CT angiogram of the chest: Radiologist's Impression: [place] [address] CT Scan Report Signed Patient: Lea Darden MR#: [id number] : 1950 Acct:[id number] Age/Sex: 74 / F Date of Service: 07/02/24 Loc: ED Accession Number: [id number] Procedure: CT angio chest PE protocol Ordering Provider: Jona Lyons MD PROCEDURE: CT ANGIO CHEST PE PROTOCOL INDICATIONS: left side tingling, also left chest pain TECHNIQUE: After the administration of intravenous contrast, 2 mm thick sections acquired from the pulmonary apices to the posterior costophrenic angles. 3-dimensional maximum intensity projection (MIP) coronal and sagittal reformats were then acquired through the thorax. For radiation dose reduction, the following was used: automated exposure control, adjustment of mA and/or kV according to patient size. COMPARISON: None. FINDINGS: Image quality: Diagnostic. Pulmonary arteries: Pulmonary arteries are normal in size, and demonstrate no intraluminal filling defects to suggest central pulmonary embolism. Lower Neck: No enlarged lymph nodes. Thyroid: Normal CT appearance. Axillae: No enlarged lymph nodes. Chest Wall: No suspicious chest wall mass. Bones: No fractures. Lungs and Pleura: Mild fibrotic changes in the posteromedial right lower lobe and reticulation of the bilateral lower lobes. No pneumothorax or pleural effusions. No consolidation or suspicious nodules. Central and peripheral airways are normal without bronchial wall thickening or bronchiectasis. Heart: Mild cardiomegaly. No pericardial effusion. Thoracic Vessels: No aortic aneurysm. Mediastinum and Dawn: No enlarged lymph nodes. Esophagus: No wall thickening. No hiatal hernia. Upper Abdomen: Mildly cirrhotic liver. A few hepatic cysts. Surgically absent gallbladder. Visible portions of upper abdominal organs are otherwise normal. IMPRESSION: No pulmonary embolus. Chronic appearing lower lung mild pulmonary fibrosis. Mild hepatic cirrhosis. Dictated by: Carolina Dillon M.D. on 07/02/2024 at 19:42 Approved by: Carolina Dillon M.D. on 07/02/2024 at 19:46 ECG Data Attestation: I personally reviewed and interpreted this ECG as follows: Interpretation: 1552, Normal sinus rhythm with rate of 77, no obvious ST segment elevation or depression changes. [place] 166, QRS 84, QTC 420. 1801, normal sinus rhythm with rate of 80, no obvious ST segment elevation or depression changes. [place] 166, QRS 82, QTC 410. MDM Narrative Medical decision making narrative: 74-year-old female has history of left-sided numbness for which she sees Neurology Dr Wells, takes clopidogrel but no other blood thinner medications, now with left-sided chest pain since this morning. No increased tingling sensation to left side. No facial tingling or weakness. No focal motor symptoms. No injury or trauma. Afebrile, sirs screen negative. No respiratory distress, lungs clear. Screening chest x-ray unremarkable. Screening EKG normal sinus rhythm without obvious ischemic changes, initial troponin negative. CT head ordered prior, no acute changes. Repeat interval troponin EKG pending. Slight residual chest discomfort. IV Toradol. CT cervical spine added. CT angiogram chest abdomen and pelvis added. Chest x-ray no acute changes. See radiology report CT head no acute changes. See radiology report. CT cervical spine, degenerative changes, no acute changes. See radiology report. CT angiogram chest, no pulmonary embolus, no acute lung changes, incidental cirrhosis of the liver noted. See radiology report. IV Toradol, symptoms seemed improved. Troponin x2 sets negative. Chest pain atypical for ACS, but possibly musculoskeletal. Response to NSAIDs. Further workup as an outpatient for now. Also follow-up outpatient with your neurologist for ongoing left arm/leg tingling of unclear etiology. Return precautions. Home with family. Discharge Plan Departure Patient Disposition: Home Clinical Impression: Chest pain, Tingling Activity Restrictions/Additional Instructions: Ms Darden, Left lateral chest discomfort of unclear cause, normal lung exam and appearance of chest, without tenderness on direct palpation, no rash or vesicles. Chest x-ray unremarkable. CT angiogram of the chest showed no blood clots to the lungs, no infiltrates or acute changes in the thorax to explain the symptoms. EKG and blood tests were not suggestive of heart attack at this time. Chest discomfort improved with Toradol, consider musculoskeletal cause. Consider further workup of cardiac heart problems as an outpatient for now, which might include echocardiogram or stress testing, discuss with your regular doctor in close follow up. Continue taking Tylenol and or Motrin as needed for chest discomfort for now. Take aspirin by mouth once daily. Continue taking your clopidogrel chronic antiplatelet medication as well. You also had left-sided tingling of the arm and leg, apparently this is a known ongoing problem, for which you were followed by a neurologist. At triage they ordered a CT scan of the head, and a CT scan of the cervical spine was added, no acute changes in those areas. Apparently this is not a new problem, unclear if this is related to your new chest pain recent complaint. Further follow up of this problem with your regular neurologist advised. Recheck symptoms with your regular doctor in the next couple of days. Return to this/nearest emergency department for any change worsening symptoms or any concerns prior. Thank you for allowing our team to evaluate you today. Prescriptions: No Action clopidogrel [Plavix] PO losartan PO atorvastatin [Lipitor] 40 MG tablet 40 mg PO QDAY Qty: 0 Referrals: Aishwarya Shepherd PA-C [Primary Care Provider] - Stand Alone Forms: Patient Portal/API/Survey
--- NOTE | 2024-07-02 18:01 | EKG_ITS ---
[address] [address] Test Date: 2024-07-02 Pat Name: Lea Darden Department: Room: Gender: Female Devops Consultant: OMAR : 1950 Requested By: Order Number: [id number] Reading MD: Gregorio Geiger MD Measurements Intervals [place] Rate: 80 P: 66 [place]: 166 QRS: 18 QRSD: 82 T: 38 QT: 356 QTc: 410 Interpretive Statements Normal sinus rhythm Electronically Signed On 07-03-2024 14:10:07 PST by Gregorio Geiger MD
--- NOTE | 2024-07-02 18:05 | DI.CT.S_ITS ---
PROCEDURE: CT CERVICAL SPINE WO CON INDICATIONS: tingling left side TECHNIQUE: Noncontrast 3 mm thick sections acquired from the skull base to the T4 level. Sagittal and coronal reformats were then constructed. For radiation dose reduction, the following was used: automated exposure control, adjustment of mA and/or kV according to patient size. COMPARISON: None. FINDINGS: Image quality: Excellent. Bones: The craniocervical junction is intact. Mild degenerative space loss and spurring at the atlantodental interval. No cervical vertebral body fractures or pathologic subluxation. Fairly normal disc height without visible bulge. Soft tissues: Prevertebral soft tissues are normal in thickness. No paravertebral hematomas. No apical pneumothoraces. IMPRESSION: No CT evidence of acute cervical spine injury. No CT evidence of significant central canal or foraminal stenosis. Dictated by: Carolina Dillon M.D. on 07/02/2024 at 19:39 Approved by: Carolina Dillon M.D. on 07/02/2024 at 19:42
--- NOTE | 2024-07-02 18:11 | DI.CT.S_ITS ---
PROCEDURE: CT ANGIO CHEST PE PROTOCOL INDICATIONS: left side tingling, also left chest pain TECHNIQUE: After the administration of intravenous contrast, 2 mm thick sections acquired from the pulmonary apices to the posterior costophrenic angles. 3-dimensional maximum intensity projection (MIP) coronal and sagittal reformats were then acquired through the thorax. For radiation dose reduction, the following was used: automated exposure control, adjustment of mA and/or kV according to patient size. COMPARISON: None. FINDINGS: Image quality: Diagnostic. Pulmonary arteries: Pulmonary arteries are normal in size, and demonstrate no intraluminal filling defects to suggest central pulmonary embolism. Lower Neck: No enlarged lymph nodes. Thyroid: Normal CT appearance. Axillae: No enlarged lymph nodes. Chest Wall: No suspicious chest wall mass. Bones: No fractures. Lungs and Pleura: Mild fibrotic changes in the posteromedial right lower lobe and reticulation of the bilateral lower lobes. No pneumothorax or pleural effusions. No consolidation or suspicious nodules. Central and peripheral airways are normal without bronchial wall thickening or bronchiectasis. Heart: Mild cardiomegaly. No pericardial effusion. Thoracic Vessels: No aortic aneurysm. Mediastinum and Dawn: No enlarged lymph nodes. Esophagus: No wall thickening. No hiatal hernia. Upper Abdomen: Mildly cirrhotic liver. A few hepatic cysts. Surgically absent gallbladder. Visible portions of upper abdominal organs are otherwise normal. IMPRESSION: No pulmonary embolus. Chronic appearing lower lung mild pulmonary fibrosis. Mild hepatic cirrhosis. Dictated by: Carolina Dillon M.D. on 07/02/2024 at 19:42 Approved by: Carolina Dillon M.D. on 07/02/2024 at 19:46
[2024-07-02] MEDS: KETOROLAC 30 MG/ML VIAL 15 MG IV (18:47)
[2024-07-02 18:49] LABS: Troponin I < 0.012 ng/mL (0.01-0.034)
--- NOTE | 2024-07-02 19:22 | PC.NURSE ---
Pt's HR has been consistently in the mid 30's (35-40) for the entire day. Physician aware. supervisor heavy equipment aware. AOx0. Pt is strong, actively tries to climb out of bed.
== END 2024-07-02 22:06 | disposition home or self-care (01) ==
PROVIDERS: Emergency Medicine; Emergency Provider Emergency Medicine; Family Provider Family Medicine; PCP Physician Assistant Medical
DX: R07.9 Chest pain, unspecified (principal); R20.2 Paresthesia of skin
CPT/HCPCS: 36415; 70450; 71045; 71275; 72125; 80053; 81003; 81015; 82550; 83690; 83735; 83880; 84484; 85025; 85610; 85730; 87086; 93005; 96374; 99284; J1885; Q9967

== ENCOUNTER 2024-07-05 22:18 | Emergency (ER) | payer MEDICARE, OTHER, SELFPAY ==
[2024-07-05 22:25] VITALS: BP 173/74; PULSE 78; RESP 16; TEMP 36.6; O2SAT 96; BMI 26.9
--- NOTE | 2024-07-05 22:33 | ED_ITS ---
HPI - Head Injury General Chief complaint: Head Injury Stated complaint: hit head, on thinners Time Seen by Provider: 07/05/24 22:33 Source: patient and family Mode of arrival: Ambulatory History of Present Illness HPI Narrative: 74-year-old female past medical history of hyperlipidemia hypertension comes into the ED from home after hitting the top of the head 30 minutes prior to arrival when getting in a car, states takes Plavix and was worried that she might have intracranial bleeding. Patient denies any LOC on exam no focal deficits noted, patient not complaining of any other symptoms such as visual disturbances headache chest pain shortness breath fever chills nausea vomiting abdominal pain or any other GI/ symptoms time. Related Data Home Medications Medication Instructions Recorded Confirmed atorvastatin 40 mg tablet (Lipitor) 40 mg PO QDAY ##0 05/27/17 06/13/24 clopidogrel [Plavix] PO 06/13/24 06/13/24 losartan PO 06/13/24 06/13/24 Allergies Allergy/AdvReac Type Severity Reaction Status Date / Time aspirin [ASPIRIN] Allergy Intermediate Verified 06/13/24 10:25 Review of Systems Review of Systems Narrative: General: Denies fever, chills, weight loss HEENT: Positive head strike, Denies headache, eye drainage, eye irritation, head trauma, sore throat, voice change Cardiovascular: Denies any chest pain, palpitations, shortness of breath, tachycardia Respiratory: Denies any shortness of breath, cough, wheeze, stridor GI/: Denies any abdominal pain, nausea, vomiting, diarrhea, bright red blood per rectum, melanotic stools, urinary frequency, urinary retention, dysuria, hematuria MSK: Denies any joint pain, muscle pains, swelling Skin: Denies any rashes, lesions, discoloration Neuro: Denies any headache, lightheadedness, dizziness, fainting, weakness Psych: Denies SI/HI Patient History Social History Smoking Status: Never smoker Smoking Status: Never smoker Exam Narrative Exam Narrative: General: Cooperative, comfortable, well-developed, not in acute distress HEENT: Normocephalic, atraumatic, PERRLA, normal sclera, eyelids normal, Neck: Active full range of motion, atraumatic Chest: Normal to inspection, negative crepitus, no overlying erythema ecchymosis Respiratory: Normal respiratory effort, not in acute respiratory distress, clear to auscultation bilaterally negative cough, wheeze, tachypnea, rhonchi, rales Cardiology: Regular rate rhythm negative gallop, murmur, rubs GI/: Normal to inspection, soft, nonrigid, no tenderness to palpation, exam deferred MSK: Full range of active range of motion of all 4 extremities, atraumatic Skin: No rashes lesions noted Neuro: Alert awake oriented x3, moves all 4 extremities spontaneously, cranial nerves intact, able to answer all questions appropriately follows commands appropriately Psych: Cooperative, negative suicidal or homicidal ideations Initial Vital Signs Initial Vital Signs: Vital Signs Temperature 97.9 F 07/05/24 22:25 Pulse Rate 78 07/05/24 22:25 Respiratory Rate 16 07/05/24 22:25 Blood Pressure 173/74 H 07/05/24 22:25 Pulse Oximetry 96 07/05/24 22:25 Oxygen Delivery Method Room Air 07/05/24 22:25 Course Orders Ordered: ED Orders 07/05/24 22:39 CT head/brain wo con Stat Vital Signs Vital signs: Vital Signs - 8 hr 07/05/24 22:25 Temperature 97.9 F Pulse Rate 78 Respiratory Rate 16 Blood Pressure 173/74 H Pulse Oximetry 96 Oxygen Delivery Method Room Air MDM - Head Injury Differential Diagnosis Differential diagnosis: Likely concussion without loss of consciousness, closed head injury, subdural hematoma and other Imaging Data CT scan - head: Radiologist's Impression: [place] [address] CT Scan Report Signed Patient: Lea Darden MR#: [id number] : 1950 Acct:[id number] Age/Sex: 74 / F Date of Service: 07/05/24 Loc: ED Accession Number: [id number] Procedure: CT head/brain wo con Ordering Provider: Mitchell Rodriguez D.O. PROCEDURE: CT HEAD/BRAIN WO CON INDICATIONS: hit top of head TECHNIQUE: Noncontrast 4.5 mm thick angled axial sections acquired from the foramen magnum to the vertex, with coronal and sagittal reformats. For radiation dose reduction, the following was used: automated exposure control, adjustment of mA and/or kV according to patient size. COMPARISON: [facility], CT, CT HEAD/BRAIN WO CON, 07/02/2024, 16:06. FINDINGS: Image quality: Diagnostic. CSF spaces: Basal cisterns are patent. No extra-axial fluid collections. The ventricles are symmetric in size and shape. Brain: No intracranial bleeds or masses. There is cerebral volume loss for age, with resultant ventricular and sulcal prominence. There are periventricular and deep white matter chronic small vessel ischemic changes. There is intracranial internal carotid artery atherosclerosis. Skull and face: Calvarium and visualized facial bones appear intact, without suspicious lesions. Sinuses: Visualized sinuses and mastoids are clear. IMPRESSION: No acute intracranial pathology. MDM Narrative Medical decision making narrative: 74-year-old female with a history of hypertension hyperlipidemia on Plavix comes in for complaints of hitting top of the head 30 minutes prior to arrival when getting in a car no LOC, on exam no focal deficits noted. Patient had CT scan here without any intracranial abnormalities, patient is still without any focal deficits time of discharge patient was given strict return precautions verbalized understanding of this and agrees to being discharged home with out patient follow up Discharge Plan Departure Patient Disposition: Home Clinical Impression: Closed head injury Activity Restrictions/Additional Instructions: Please follow up with the primary care doctor Please read the discharge instructions sheet carefully and bring all papers to all doctor follow-up visits, as it may contain information that your doctor may want to see. Disease processes change and evolve, if your symptoms worsen or if you develop any new symptoms that are concerning to you please return for evaluation. Your evaluation today does not show any evidence of any life- threatening/serious illnesses requiring admission to the hospital or surgery. Please follow-up with your doctor for re-evaluation in approximately 1 day. Seek immediate medical attention for any worrisome symptoms. *If you do not have a primary care provider please contact the [facility] Resource line at [phone]. They will ask some questions about your medical history and help get you set up with a doctor in the community. Prescriptions: No Action clopidogrel [Plavix] PO losartan PO atorvastatin [Lipitor] 40 MG tablet 40 mg PO QDAY Qty: 0 Referrals: Aishwarya Shepherd PA-C [Primary Care Provider] - Stand Alone Forms: Patient Portal/API/Survey
--- NOTE | 2024-07-05 22:39 | DI.CT.S_ITS ---
PROCEDURE: CT HEAD/BRAIN WO CON INDICATIONS: hit top of head TECHNIQUE: Noncontrast 4.5 mm thick angled axial sections acquired from the foramen magnum to the vertex, with coronal and sagittal reformats. For radiation dose reduction, the following was used: automated exposure control, adjustment of mA and/or kV according to patient size. COMPARISON: [facility], CT, CT HEAD/BRAIN WO CON, 07/02/2024, 16:06. FINDINGS: Image quality: Diagnostic. CSF spaces: Basal cisterns are patent. No extra-axial fluid collections. The ventricles are symmetric in size and shape. Brain: No intracranial bleeds or masses. There is cerebral volume loss for age, with resultant ventricular and sulcal prominence. There are periventricular and deep white matter chronic small vessel ischemic changes. There is intracranial internal carotid artery atherosclerosis. Skull and face: Calvarium and visualized facial bones appear intact, without suspicious lesions. Sinuses: Visualized sinuses and mastoids are clear. IMPRESSION: No acute intracranial pathology. Approved by: Joan Palafox M.D.,Ph.D. on 07/05/2024 at 23:30
[2024-07-05 23:12] VITALS: PULSE 63; O2SAT 99
[2024-07-05 23:30] VITALS: PULSE 56; O2SAT 97
[2024-07-05 23:35] VITALS: BP 133/60; PULSE 63; O2SAT 96
== END 2024-07-05 23:52 | disposition home or self-care (01) ==
PROVIDERS: Emergency Provider Student in an Organized Health Care Education/Training Program; Family Provider Family Medicine; PCP Physician Assistant Medical
DX: S09.8XXA Other specified injuries of head, initial encounter (principal); W22.09XA Striking against other stationary object, initial encounter; Z79.02 Long term (current) use of antithrombotics/antiplatelets
CPT/HCPCS: 70450; 99283; 99284

== ENCOUNTER 2024-07-10 18:21 | Emergency (ER) | payer MEDICARE, OTHER, SELFPAY ==
[2024-07-10] VITALS (8 sets, daily range): BP systolic 120–158; BP diastolic 57–68; PULSE 54–72; RESP 18; TEMP 36.9; O2SAT 94–100; BMI 26.9
--- NOTE | 2024-07-10 18:42 | DI.CT.S_ITS ---
PROCEDURE: CT HEAD/BRAIN WO CON INDICATIONS: HIT HEAD ON THINNERS TECHNIQUE: Noncontrast 4.5 mm thick angled axial sections acquired from the foramen magnum to the vertex, with coronal and sagittal reformats. For radiation dose reduction, the following was used: automated exposure control, adjustment of mA and/or kV according to patient size. COMPARISON: [facility], CT, CT HEAD/BRAIN WO CON, 07/02/2024, 16:06. [facility], CT, CT HEAD/BRAIN WO CON, 07/05/2024, 22:44. FINDINGS: Image quality: Diagnostic. CSF spaces: Basal cisterns are patent. No extra-axial fluid collections. Ventricles are normal in size and shape. Brain: No midline shift. No intracranial masses or hemorrhage. No area of hypodensity in a large vascular distribution to suggest acute infarction. Periventricular hypodensity consistent with chronic microvascular ischemic change. Skull and face: Calvarium and visualized facial bones are intact, without suspicious lesions. Sinuses: Visualized sinuses and mastoids are clear. IMPRESSION: No acute intracranial hemorrhage. Dictated by: Claude Mauricio M.D. on 07/10/2024 at 19:51 Approved by: Claude Mauricio M.D. on 07/10/2024 at 19:53
--- NOTE | 2024-07-10 22:47 | ED.HEATRA ---
HPI - Head Injury General Chief complaint: Head Injury Stated complaint: hit in head by clothes rack, on blood thinners Time Seen by Provider: 07/10/24 18:59 Source: patient Mode of arrival: Ambulatory History of Present Illness HPI Narrative: 74-year-old woman with a history hypertension, hyperlipidemia currently on Plavix was in her closet today and had a metal rack fall and land on the top of her head. It did hurt, startled her and made her see stars briefly, there was no loss of consciousness she has not complaining of neck pain there was minimal contusing and no bleeding to her head. She comes in for CT scan known she is on Plavix after hitting her head. She has no other immediate complaints Related Data Home Medications Medication Instructions Recorded Confirmed atorvastatin 40 mg tablet (Lipitor) 40 mg PO QDAY ##0 05/27/17 06/13/24 clopidogrel [Plavix] PO 06/13/24 06/13/24 losartan PO 06/13/24 06/13/24 Allergies Allergy/AdvReac Type Severity Reaction Status Date / Time aspirin [ASPIRIN] Allergy Intermediate Verified 07/10/24 18:37 Review of Systems Review of Systems Narrative: Pertinent positive and negative findings as per HPI Patient History Social History Smoking Status: Never smoker Smoking Status: Never smoker Exam Initial Vital Signs Initial Vital Signs: Vital Signs Temperature 98.5 F 07/10/24 18:37 Pulse Rate 72 07/10/24 18:37 Respiratory Rate 18 07/10/24 18:37 Blood Pressure 155/68 H 07/10/24 18:37 Pulse Oximetry 98 07/10/24 18:37 Oxygen Delivery Method Room Air 07/10/24 18:37 General: Alert appropriate in no acute distress HEENT: Area where she complains of pain on the top of her head is evaluated. There was no abrasion or obvious contusion. Pupils are equal and reactive cervical spine: No tenderness along the midline cervical spine no paraspinous spasm Respiratory: Able to speak in full sentences, no obvious respiratory distress Skin: No obvious rashes, warm and dry Neurologic: Grossly intact no obvious asymmetries or abnormalities Psych: appropriate insight and affect, cooperative Course Orders Ordered: ED Orders 07/10/24 18:42 CT head/brain wo con Stat Vital Signs Vital signs: Vital Signs - 8 hr 07/10/24 18:37 07/10/24 21:06 07/10/24 21:07 Temperature 98.5 F Pulse Rate 72 66 Respiratory Rate 18 Blood Pressure 155/68 H Pulse Oximetry 98 100 98 Oxygen Delivery Method Room Air 07/10/24 21:07 07/10/24 21:30 07/10/24 21:31 Temperature Pulse Rate 57 L Respiratory Rate Blood Pressure 158/67 H 136/59 L Pulse Oximetry 96 Oxygen Delivery Method 07/10/24 21:31 07/10/24 22:00 07/10/24 22:01 Temperature Pulse Rate 61 54 L Respiratory Rate Blood Pressure 120/57 L Pulse Oximetry 97 95 Oxygen Delivery Method 07/10/24 22:01 Temperature Pulse Rate 56 L Respiratory Rate Blood Pressure Pulse Oximetry 96 Oxygen Delivery Method MDM - Head Injury MDM Narrative Medical decision making narrative: delightful 74-year-old woman with fairly minor injury to her head currently on Plavix comes in with concerns for intracranial hemorrhage secondary to this combination. CT scan of the head is done and shows no abnormalities. She does not have any cervical spine issue. There was no indication for additional blood work or imaging. Patient has taken Tylenol at home and is having no pain at this time. She is safe for discharge Discharge Plan Departure Patient Disposition: Home Clinical Impression: Anticoagulated Head injury Qualifiers: Encounter type: initial encounter Qualified Code(s): S09.90XA - Unspecified injury of head, initial encounter Instructions: DI for Closed Head Injury Activity Restrictions/Additional Instructions: thank you for coming in today the CT scan of your head is very reassuring. There is no bleeding on the inside after you hit your head earlier today. It is okay to use Tylenol for pain control. If you find that you are getting worse or develop any new symptoms, please feel free to return to the emergency department for further evaluation. Prescriptions: No Action clopidogrel [Plavix] PO losartan PO atorvastatin [Lipitor] 40 MG tablet 40 mg PO QDAY Qty: 0 Referrals: Aishwarya Shepherd PA-C [Primary Care Provider] - Stand Alone Forms: Patient Portal/API/Survey
== END 2024-07-10 22:58 | disposition home or self-care (01) ==
PROVIDERS: Emergency Provider Emergency Medicine; Family Provider Family Medicine; PCP Physician Assistant Medical
DX: S09.90XA Unspecified injury of head, initial encounter (principal); W20.8XXA Other cause of strike by thrown, projected or falling object, initial encounter; Z79.02 Long term (current) use of antithrombotics/antiplatelets
CPT/HCPCS: 70450; 99281; 99284

== ENCOUNTER → 2024-08-14 08:18 | Outpatient (CLI) | payer MEDICARE, OTHER, SELFPAY ==
--- NOTE | 2024-08-14 17:41 | DI.NM.S_ITS ---
DATE OF SERVICE: 08/14/2024 NUCLEAR CARDIOLOGY MYOCARDIAL PERFUSION STUDY PROCEDURE: Exercise stress and rest myocardial perfusion imaging with gating to assess ejection fraction and regional wall motion. ORDERING PROVIDER: Aishwarya Shepherd PA-C INDICATIONS: The patient is a 74-year-old female with atypical chest discomfort and a mildly abnormal EKG. CARDIAC STRESS: The patient was able to exercise for 6 minutes on a standard Anirudh protocol suggesting good exercise capacity with an TAMAR of -15%, achieving 6.1 METS. She had a normal heart rate and blood pressure response, achieving a maximum heart rate of 153 bpm (106% of her predicted maximum). She had no chest discomfort or other anginal symptoms. Her resting ECG shows sinus rhythm with nonspecific inferolateral ST and T-wave abnormalities that become accentuated with stress with maximal ST depression of around 1 to 2 mm at peak exercise, persisting into the recovery phase. There were rare isolated PVCs but no complex arrhythmias. At 4 minutes 15 seconds of exercise at a heart rate of 137 bpm, 24.4 mCi of technetium-99m Myoview was injected and she was imaged 10 minutes later using a gated SPECT acquisition protocol. Earlier in the day while at rest, she had been injected with 11.4 mCi of technetium-99m Myoview and was imaged 15 minutes later, again using a gated SPECT acquisition protocol. FINDINGS: RAW DATA: There is good myocardial tracer uptake. The lung/heart ratio is normal at 0.26 with a normal TID ratio of 0.73. QUANTITATED GATED SPECT: Post-stress ejection fraction is estimated at 98%, BUT likely an overestimate because of small left ventricular volumes. There are no focal wall motion abnormalities. The resting ejection fraction is also 98%, again likely an overestimate, with a small resting end-diastolic volume of 48 mL. MYOCARDIAL PERFUSION IMAGING: Post-stress supine images show a normal myocardial perfusion pattern without any perfusion defects. The resting images show an identical perfusion pattern without any areas of improvement. IMPRESSION: 1. Normal exercise myocardial perfusion study. 2. No perfusion defects to suggest myocardial ischemia or previous myocardial infarction. 3. Small left ventricular volumes with high normal left ventricular systolic function without any focal wall motion abnormality. 4. Good exercise capacity without angina. While she develops mild ST- segment abnormalities with exercise that persist into recovery, these are likely a false-positive given the absence of any perfusion defects. Lea Darden - RS/fn/AAD doc#: [id number]/job#: [id number] dd: 08/14/2024 16:56:00 dt: 08/14/2024 17:22:00 DICTATING MD/COPIES TO: Diaz Chacon MD; AYSHA Mcfarland COPIES MNE: ARMAND;
== END ==
PROVIDERS: Family Provider Family Medicine; PCP Physician Assistant Medical; Referring Provider Physician Assistant Medical; Visit Provider Physician Assistant Medical
DX: R07.9 Chest pain, unspecified (principal)
CPT/HCPCS: 78452; 93017; A9502